=== PATIENT | female | born 1955 | race Caucasian/White ===

== ENCOUNTER 2017-05-14 12:25 | Emergency (ER) | payer MEDICAID ==
[~2017-05-14] VITALS: Ht 160 cm; Wt 60.8 kg
[~2017-05-14 12:25] MED LIST: ALLEVE; CARI250T; HYDR-1421; IBUP400T35
[2017-05-14 13:15] VITALS: BP 152/78
[2017-05-14] MEDS ORDERED: methylPREDNISolone SOD SUCC 125 MG/2 ML VL IM ONE (13:30)
== END 2017-05-14 15:21 | disposition home or self-care (01) ==
LOC: ER 12:28
DX: R21 Rash and other nonspecific skin eruption (principal); E11.9 Type 2 diabetes mellitus without complications; I10 Essential (primary) hypertension; M19.90 Unspecified osteoarthritis, unspecified site; Z79.899 Other long term (current) drug therapy
CPT/HCPCS: 96372; 99283; J2930

== ENCOUNTER 2019-12-29 12:00 | Emergency (ER) | payer MEDICARE, MEDICAID ==
[~2019-12-29] VITALS: Ht 157.5 cm; Wt 59.0 kg
[2019-12-29 12:12] VITALS: BP 127/70
[2019-12-29] MEDS ORDERED: MEPERIDINE HCL (50 MG/ML) 1 ML VIAL IM ONE (14:15)
[2019-12-29] MEDS ORDERED: PROMETHAZINE HCL 25 MG/ML 1ML IM ONE (14:15)
== END 2019-12-29 14:46 | disposition home or self-care (01) ==
LOC: EDBD 12:00 → ER 12:02
DX: M54.5 Low back pain (principal); G89.29 Other chronic pain; M19.90 Unspecified osteoarthritis, unspecified site; E11.9 Type 2 diabetes mellitus without complications; I10 Essential (primary) hypertension
CPT/HCPCS: 96372; 99283; J2175; J2550

== ENCOUNTER 2019-12-30 11:49 | Inpatient (IN) | payer MEDICARE, MEDICAID ==
[~2019-12-30] VITALS: Ht 165.1 cm; Wt 57.5 kg
[2019-12-30] MEDS ORDERED: KETOROLAC TROMETH 15 mg/ml 1ML VL IV ONE (13:15)
[2019-12-30] MEDS ORDERED: LABETALOL HCL 5 MG/ML 4ML SYRINGE IV ONE (13:15)
[2019-12-30 13:30] LABS: Basophils # (auto) 0.1 uL; Eosinophils # (auto) 0.1 uL; Lymphocytes # (auto) 1.5 uL; Monocytes # (auto) 0.5 uL; Monocytes % (auto) 5.2 % (0.0-12.0); Nucleated Red Blood Cells % 0.1 %
[2019-12-30 13:31] LABS: Basophils % (auto) 0.9 % (0.0-2.0); Eosinophils % (auto) 0.9 % (0.0-7.0); Hematocrit 52.5 % (36.0-46.0); Hemoglobin 18.1 g/dL (12.2-16.2); Lymphocytes % (auto) 15.1 % (10.0-50.0); Mean Corpuscular Hemoglobin 31.8 pg (28.0-32.0); Mean Corpuscular Hgb Conc. 34.4 g/dL (32.0-36.0); Mean Corpuscular Volume 92.6 fL (80.0-100.0); Neutrophils # (auto) 7.6 uL; Neutrophils % (auto) 77.9 % (37.0-80.0); Platelet Count (auto) 198 10^3/uL (140-450); Red Blood Cells 5.67 10^6/uL (4.0-5.20); Red Cell Distribution Width 13.1 % (11.8-14.3); White Blood Cell 9.8 10^3/uL (4.4-10.8)
[2019-12-30 13:44] LABS: Alanine Aminotransferase 27 U/L (13-56); Albumin 3.7 g/dL (3.4-5.0); Anion Gap 11 (5-15); Aspartate Aminotransferase 15 U/L (15-37); BUN/Creatinine Ratio 42.4; Blood Urea Nitrogen 25 mg/dL (7-18); Calcium 8.7 mg/dL (8.5-10.1); Carbon Dioxide 24 mmol/L (21-32); Chloride 97 mmol/L (98-107); GFR African American 131 mL/min; GFR Non-African American 108 mL/min; Glucose 327 mg/dL (74-106); Sodium 132 mmol/L (136-145)
[2019-12-30 13:49] LABS: Alkaline Phosphatase 84 U/L (45-117); Total Protein 7.2 g/dL (6.4-8.2)
[2019-12-30 14:45] LABS: Urine Bacteria NONE SEEN /hpf (None Seen); Urine Blood Negative /uL (Negative); Urine Mucus FEW (None Seen); Urine Specific Gravity 1.031 (1.001-1.035); Urine WBC 2 /hpf (0 - 5)
[2019-12-30] MEDS ORDERED: IOHEXOL 300 MG/ML 100ML BOTTLE IJ ONE (16:33)
[2019-12-30] MEDS ORDERED: cefTRIAXone 1GM/50ML D5W 50 ML IV ONE (16:45)
[2019-12-30] MEDS: MORPHINE SULF INJ 2 MG/ML SYRINGE 1ML IV PRN ×2 (17:20→22:33)
[2019-12-30] MEDS ORDERED: MAGNESIUM SULFATE 1GM/100ML 100 ML IV ONE (18:15)
[2019-12-30] MEDS ORDERED: MORPHINE SULF INJ 2 MG/ML SYRINGE 1ML IV PRN (18:15)
[2019-12-30] MEDS ORDERED: PROMETHAZINE HCL 25 MG/ML 1ML IV PRN (18:15)
[2019-12-30] MEDS ORDERED: traMADol HCL 50 MG TAB PO PRN (18:15)
[2019-12-30] MEDS ORDERED: LORazepam 0.5 MG TAB PO PRN (18:15)
[2019-12-30] MEDS ORDERED: LEVOFLOXACIN 500MG 100 ML IV ONE (18:15)
[2019-12-30] MEDS ORDERED: DEXTROSE (50%) 50ML SYRG IV PRN ×3 (18:15→22:30)
[2019-12-30] MEDS ORDERED: NITROGLYCERIN 0.4 MG SL TAB SL PRN (18:15)
[2019-12-30] MEDS ORDERED: ACETAMINOPHEN 500 MG TAB PO PRN (18:15)
[2019-12-30] MEDS: SODIUM CHLORIDE 0.9% 1,000 ML IV SCH (18:33)
[2019-12-30 19:03] LABS: Alcohol, Urine < 3.0 mg/dL (0-5); Amphetamine Screen, Urine POSITIVE (NEGATIVE); Barbiturate Scree,Urine NEGATIVE (NEGATIVE); Benzodiazephine Screen, Urine NEGATIVE (NEGATIVE); Cannabinoid Screen, Urine NEGATIVE (NEGATIVE); Cocaine Screen, Urine NEGATIVE (NEGATIVE); Opiate Scree,Urine NEGATIVE (NEGATIVE); Phencyclidine Screen, Urine NEGATIVE (NEGATIVE)
[2019-12-30] MEDS: ENOXAPARIN SOD 40 MG/0.4 ML SYRINGE SC SCH (19:04)
[2019-12-30] MEDS: FAMOTIDINE (10MG/ML) 2ML VL IV SCH (19:04)
[2019-12-30] MEDS ORDERED: hydrALAZINE HCL 20 MG/ML VL IV ONE (20:45)
[2019-12-30] MEDS ORDERED: hydrALAZINE HCL 10 MG TAB PO PRN (20:45)
[2019-12-30] MEDS ORDERED: hydrALAZINE HCL 25 MG TAB PO PRN (21:00)
[2019-12-30] MEDS ORDERED: diphenhdrAMINE HCL 25 MG CAP PO ONE (21:15)
[2019-12-30] MEDS ORDERED: ACCU-CHEK COMFORT CURVE STRIP VI SCH (22:00)
[2019-12-30] MEDS ORDERED: InsuLIN REG 1unit/0.01ml Soln (100units/ml) SC SCH (22:00)
--- NOTE | 2019-12-30 22:00 | NUR ---
PATIENT ADMITTED FROM ER Patient admitted to Telemetry unit at 2150 and arrived by wheelchair. Patient oriented to primary RN, unit, room, bed, and unit policies regarding patient care and visiting hours. Patient now on continuous telemetry monitoring, tele box # [id number] and telemetry reading on arrival to unit is sinus tachycardia. Patient weighed by bedscale and encouraged to call if they need something. Patient states current pain level is 10. Will give pain medication as scheduled. All questions and concerns addressed, patient verbalized understanding. Call light and bedside table within reach. Bed is lowest position, bed rails 2x, bed wheels locked.
--- NOTE | 2019-12-30 22:14 | NUR ---
Called and spoke to MD Erazo. Notified him that patient's daughter indicated to me that patient may decide to AMA within the next hour. Per MD Erazo, that is an individual decision and if she wishes to leave she may sign the AMA paperwork and leave. Notified MD of two blood glucose results: 360 and 484 m/dL. Orders received: discontinue current mild insulin scale and change to aggressive insulin scale ACHS. Notified of elevated BP: 191/76 and 136/55. Ordered to reassess in 10 minutes and notify MD if BP is still elevated.
[2019-12-30] MEDS: METOPROLOL TARTRATE 25 MG TAB PO SCH (22:31)
[2019-12-30] MEDS: INSULIN LANTUS (GLARGINE) 1 /0.01ml (100units/ml) SC SCH (22:32)
[2019-12-30] MEDS: CLINDAMYCIN 600MG IV 50 ML IV SCH (22:34)
[2019-12-30] MEDS ORDERED: InsuLIN REG 1unit/0.01ml Soln (100units/ml) SC ONE (23:00)
[2019-12-31] VITALS (7 sets, daily range): BP systolic 95–144; BP diastolic 46–75
[2019-12-31] MEDS ORDERED: METO25TA93 PO (00:19)
[2019-12-31] MEDS ORDERED: LISI-275 PO (00:19)
[2019-12-31] MEDS ORDERED: HYDR-4833 PO (00:19)
[2019-12-31] MEDS: SODIUM CHLORIDE 0.9% 1,000 ML IV SCH ×2 (04:30→14:14)
[2019-12-31] MEDS: CLINDAMYCIN 600MG IV 50 ML IV SCH ×3 (05:55→22:33)
[2019-12-31] MEDS: FAMOTIDINE (10MG/ML) 2ML VL IV SCH ×2 (05:55→18:15)
[2019-12-31] MEDS: MORPHINE SULF INJ 2 MG/ML SYRINGE 1ML IV PRN ×2 (06:08→13:36)
[2019-12-31] MEDS: InsuLIN REG 1unit/0.01ml Soln (100units/ml) SC SCH ×5 (07:00→22:48)
[2019-12-31] MEDS: INSULIN LANTUS (GLARGINE) 1 /0.01ml (100units/ml) SC SCH ×2 (07:00→22:54)
[2019-12-31] MEDS: ACCU-CHEK COMFORT CURVE STRIP VI SCH ×5 (07:00→22:49)
[2019-12-31] MEDS ORDERED: InsuLIN REG 1unit/0.01ml Soln (100units/ml) SC SCH ×3 (07:00→22:00)
[2019-12-31] MEDS ORDERED: ACCU-CHEK COMFORT CURVE STRIP VI SCH (07:00)
--- NOTE | 2019-12-31 08:00 | NUR ---
OPENING SHIFT NOTE ASSUMED CARE OF PATIENT AWAKE AND ALERT. NO S/S OF DISTRESS NOTED. PT HAS A COMPLAINT OF 10/10 ABDOMINAL PAIN. WILL MEDICATE PER MD ORDER AND MAR. PT UPDATED ON POC FOR THE DAY AND ALL QUESTIONS ANSWERED. BED IS IN LOWEST, LOCKED POSITION WITH SIDE RAILS UP X2 AND CALL LIGHT WITHIN REACH. WILL CONTINUE TO MONITOR Q1H AND PRN.
[2019-12-31 08:24] LABS: Basophils # (auto) 0.1 uL; Eosinophils # (auto) 0.2 uL; Eosinophils % (auto) 1.8 % (0.0-7.0); Hematocrit 49.9 % (36.0-46.0); Hemoglobin 16.7 g/dL (12.2-16.2); Lymphocytes # (auto) 2.4 uL; Mean Corpuscular Hemoglobin 30.9 pg (28.0-32.0); Mean Corpuscular Hgb Conc. 33.6 g/dL (32.0-36.0); Mean Corpuscular Volume 92.2 fL (80.0-100.0); Monocytes # (auto) 1.1 uL; Monocytes % (auto) 8.4 % (0.0-12.0); Neutrophils # (auto) 8.8 uL; Neutrophils % (auto) 69.8 % (37.0-80.0); Nucleated Red Blood Cells % 0.1 %; Platelet Count (auto) 232 10^3/uL (140-450); Red Blood Cells 5.41 10^6/uL (4.0-5.20); Red Cell Distribution Width 12.8 % (11.8-14.3); White Blood Cell 12.6 10^3/uL (4.4-10.8)
[2019-12-31 08:38] LABS: Potassium 3.4 mmol/L (3.5-5.1)
[2019-12-31 08:54] LABS: Albumin 3.4 g/dL (3.4-5.0); BUN/Creatinine Ratio 32.4; Bilirubin, Total 0.7 mg/dL (0.2-1.0); Total Protein 6.7 g/dL (6.4-8.2)
[2019-12-31] MEDS: ENOXAPARIN SOD 40 MG/0.4 ML SYRINGE SC SCH (11:07)
[2019-12-31] MEDS: LEVOFLOXACIN 500MG 100 ML IV SCH (11:07)
[2019-12-31] MEDS: METOPROLOL TARTRATE 25 MG TAB PO SCH ×2 (11:07→22:37)
[2019-12-31] MEDS ORDERED: DEXTROSE (50%) 50ML SYRG IV PRN (11:30)
[2019-12-31] MEDS ORDERED: BACL10TA PO (11:56)
[2019-12-31] MEDS ORDERED: NAP500T PO (11:57)
[2019-12-31] MEDS ORDERED: LACTULOSE 20Gm/30ML SOLN PO PRN (12:30)
--- NOTE | 2019-12-31 12:30 | NUR ---
DR JENNIFER RODRIGUEZ AT BEDSIDE TO SPEAK TO PATIENT. NEW ORDERS RECEIVED, WILL CARRY OUT. CONTINUE CARE.
--- NOTE | 2019-12-31 12:50 | NUR ---
PHYSICAL THERAPY PT AMBULATED PATIENT WITH CONTACT GUARD USING FWW. PT WAS NOT ABLE TO AMBULATE VERY FAR D/T BACK PAIN.
--- NOTE | 2019-12-31 14:20 | NUR ---
PAGED PAGED DR MURRY REGARDING LOW POTASSIUM. AWAITING CALL BACK.
[2019-12-31] MEDS ORDERED: POTASSIUM CHL 20 Meq TABLET PO ONE (16:15)
[2020-01-01] MEDS: SODIUM CHLORIDE 0.9% 1,000 ML IV SCH ×3 (00:22→13:27)
[2020-01-01] MEDS: HYDROcodone-ACET 10/325MG TAB PO PRN ×3 (00:27→20:45)
[2020-01-01 05:00] VITALS: BP 119/49
[2020-01-01] MEDS: FAMOTIDINE (10MG/ML) 2ML VL IV SCH ×2 (05:57→18:16)
[2020-01-01] MEDS: CLINDAMYCIN 600MG IV 50 ML IV SCH ×3 (05:57→21:40)
[2020-01-01 06:23] LABS: BUN/Creatinine Ratio 22.5; Calcium 8.1 mg/dL (8.5-10.1); Magnesium 1.8 mg/dL (1.6-2.6); Potassium 4.2 mmol/L (3.5-5.1)
[2020-01-01 06:25] LABS: Basophils # (auto) 0.1 uL; Basophils % (auto) 1.3 % (0.0-2.0); Eosinophils # (auto) 0.4 uL; Hematocrit 45.1 % (36.0-46.0); Hemoglobin 15.3 g/dL (12.2-16.2); Lymphocytes % (auto) 20.2 % (10.0-50.0); Mean Corpuscular Hemoglobin 31.6 pg (28.0-32.0); Mean Corpuscular Volume 93.1 fL (80.0-100.0); Monocytes # (auto) 0.8 uL; Monocytes % (auto) 8.1 % (0.0-12.0); Neutrophils # (auto) 6.7 uL; Neutrophils % (auto) 66.4 % (37.0-80.0); Platelet Count (auto) 160 10^3/uL (140-450); Red Blood Cells 4.85 10^6/uL (4.0-5.20); Red Cell Distribution Width 12.8 % (11.8-14.3); White Blood Cell 10.1 10^3/uL (4.4-10.8)
[2020-01-01] MEDS: InsuLIN REG 1unit/0.01ml Soln (100units/ml) SC SCH ×4 (07:02→21:41)
[2020-01-01] MEDS: INSULIN LANTUS (GLARGINE) 1 /0.01ml (100units/ml) SC SCH ×2 (07:02→21:42)
[2020-01-01] MEDS: ACCU-CHEK COMFORT CURVE STRIP VI SCH ×4 (07:03→21:42)
--- NOTE | 2020-01-01 08:00 | NUR ---
OPENING SHIFT NOTE ASSUMED CARE OF PATIENT. PT WAS FOUND BY FELLOW RN WANDERING IN [place] LOOKING FOR HER . RETURNED PATIENT TO HER ROOM SAFELY. PT REORIENTED AND EXPRESSED THAT SHE JUST GOT CONFUSED WHEN SHE WOKE UP. PT IS A&OX4. PT UPDATED ON POC FOR THE DAY AND ALL QUESTIONS ANSWERED. BED IS IN LOWEST, LOCKED POSITION WITH SIDE RAILS UP X2 AND CALL LIGHT WITHIN REACH. WILL CONTINUE TO MONITOR Q1H AND PRN.
[2020-01-01 09:00] VITALS: BP 128/81
[2020-01-01] MEDS: LEVOFLOXACIN 500MG 100 ML IV SCH (09:54)
[2020-01-01] MEDS: METOPROLOL TARTRATE 25 MG TAB PO SCH ×2 (09:54→21:41)
[2020-01-01] MEDS: ENOXAPARIN SOD 40 MG/0.4 ML SYRINGE SC SCH (09:55)
--- NOTE | 2020-01-01 10:30 | NUR ---
AT BEDSIDE DR MURRY AT BEDSIDE EVALUATING PATIENT AND UPDATING HER ON POC.
[2020-01-01] MEDS ORDERED: MAGNESIUM SULFATE 1GM/100ML 100 ML IV ONE (11:45)
[2020-01-01 13:00] VITALS: BP 122/64
[2020-01-01] MEDS: MORPHINE SULF INJ 2 MG/ML SYRINGE 1ML IV PRN (13:27)
--- NOTE | 2020-01-01 16:30 | NUR ---
MRI MRI CALLED ASKING IF PATIENT HAD ANY PAIN MEDICATIONS DUE. PATIENT IS NOT DUE FOR PAIN MEDICATION AT THIS TIME. MRI INFORMED ME THE PATIENT IS REFUSING THE PROCEDURE SHE CANNOT LAY FLAT D/T THE PAIN. PATIENT WAS RETURNED BACK TO HER ROOM WITHOUT INCIDENT AND PLACED BACK ON TELEMETRY MONITORING. WILL CONTINUE TO MONITOR.
[2020-01-01 17:00] VITALS: BP 109/38
--- NOTE | 2020-01-01 17:23 | NUR ---
DR PRIMO TILLMAN AT BEDSIDE TO SEE PATIENT.
--- NOTE | 2020-01-01 17:24 | NUR ---
D/C Planning Per consult for safety evaluation and rehab for drug resources. Patient daughter Kamala was at bedside when information and choice was given to patient at bedside. Patient requested for Kamala to decided. Kamala did not have a home health preference and order was faxed to [facility]. Patient refused resources for drug rehab. Faxed orders to [facility] Fax:) Ph:( [phone]). Placed followed up called to Justin with [facility]. Per Justin patient has been accepted and service to start within 24-48hrs upon d/c day.
--- NOTE | 2020-01-01 17:25 | NUR ---
NHUNG INFORMED DR TILLMAN THAT PATIENT HAS BEEN GOING IN AND OUT OF A BIGEMINY RHYTHM. AWARE, NO NEW ORDERS.
[2020-01-01 22:00] VITALS: BP 120/65
[2020-01-02] MEDS: SODIUM CHLORIDE 0.9% 1,000 ML IV SCH ×2 (04:25→21:05)
[2020-01-02 05:49] VITALS: BP 116/59
[2020-01-02] MEDS: InsuLIN REG 1unit/0.01ml Soln (100units/ml) SC SCH ×4 (06:41→22:10)
[2020-01-02] MEDS: INSULIN LANTUS (GLARGINE) 1 /0.01ml (100units/ml) SC SCH ×2 (06:41→22:10)
[2020-01-02] MEDS: ACCU-CHEK COMFORT CURVE STRIP VI SCH ×4 (06:41→22:09)
[2020-01-02] MEDS: FAMOTIDINE (10MG/ML) 2ML VL IV SCH ×2 (06:42→18:18)
[2020-01-02] MEDS: CLINDAMYCIN 600MG IV 50 ML IV SCH ×3 (06:42→21:55)
[2020-01-02 07:04] LABS: Cholesterol 163 mg/dL (< 200); HDL Cholesterol 38 mg/dL (40-59); LDL Cholesterol 102 mg/dL (< 100); Triglycerides 198 mg/dL (< 150)
[2020-01-02] MEDS: HYDROcodone-ACET 10/325MG TAB PO PRN ×2 (07:05→17:19)
--- NOTE | 2020-01-02 08:00 | NUR ---
OPENING SHIFT NOTE ASSUMED CARE OF PATIENT AWAKE AND ALERT. PT UPDATED ON POC FOR THE DAY AND ALL QUESTIONS ANSWERED. BED IS IN LOWEST, LOCKED POSITION WITH SIDE RAILS UP X2 AND CALL LIGHT WITHIN REACH. WILL CONTINUE TO MONITOR Q1H AND PRN.
[2020-01-02 09:00] VITALS: BP 107/58
[2020-01-02] MEDS: METOPROLOL TARTRATE 25 MG TAB PO SCH ×2 (09:57→21:56)
[2020-01-02] MEDS: LEVOFLOXACIN 500MG 100 ML IV SCH (09:57)
[2020-01-02] MEDS: ENOXAPARIN SOD 40 MG/0.4 ML SYRINGE SC SCH (09:57)
[2020-01-02] MEDS ORDERED: HYDROmorphone HCL 2 MG/ML VL IV ONE ×2 (10:45→14:45)
[2020-01-02 13:00] VITALS: BP 117/80
--- NOTE | 2020-01-02 13:20 | NUR ---
MRI PATIENT AGAIN UNABLE TO COMPLETE MRI OF SPINE DESPITE ADMINISTRATION OF IV DILAUDID FOR PAIN. DR MURRY AWARE. NEW ORDERS RECEIVED.
--- NOTE | 2020-01-02 14:00 | NUR ---
SPOKE WITH DR MURRY REGARDING PATIENT'S INABILITY TO LAY FOR MRI. 250ML NS BOLUS ORDERED FOR DECREASED BP. ORDERS TO GIVE 0.5MG DILAUDID IV AND 1MG ATIVAN IV IF BP IS STABLE AND RETRY MRI. WILL FOLLOW UP.
--- NOTE | 2020-01-02 14:10 | NUR ---
PATIENT REFUSED BOTH ATTEMPTS FROM PHYSICAL THERAPY TODAY. TAAWNA RAGLAND WAS NOTIFIED. Addendum: 01/02/20 at 1411 by DEENA OLEA PTT Amended: Links added.
[2020-01-02] MEDS ORDERED: LORazepam 2MG/ML-1ML VIAL IV ONE (14:45)
--- NOTE | 2020-01-02 14:45 | NUR ---
BP REASSESSMENT PATIENT'S BLOOD PRESSURE AFTER RECEIVING NS BOLUS IS 93/51 WITH A HEART RATE OF 71. INFORMED PATIENT AND DR SHAIKH Allred WILL NOT BE GIVING IV PAIN AND ANXIETY MEDICATIONS AND THE MRI WILL HAVE TO BE REATTEMPTED TOMORROW. WILL CONTINUE TO MONITOR.
--- NOTE | 2020-01-02 15:03 | NUR ---
NUTRITION ASSESSMENT NOTES Please refer to link notes of nutrition screen form filed under the intervention section of the plan of care for further details. Est. Needs: 1450 kcal to 1700 kcal (25-30 kcal/kgBW), 57gms to 68 gms pro (1.0-1.2 gms/kgBW). Will continue to monitor pertinent labs and reassess nutrient needs prn Thank you. Addendum: 01/02/20 at [address] Amended: Links added.
[2020-01-02 17:00] VITALS: BP 93/51
--- NOTE | 2020-01-02 19:45 | NUR ---
OPENING SHIFT NOTE Assumed care of patient who is A&O x4. Currently on RA with no s/s of distress; denies SOB. reports 6/10 pain in left lower abdomen and back. Patient informed that pain medication is not due at this time. Patient verbalizes understanding. POC discussed and all questions answered. PIV in left hand is intact and patent. IVF infusing as ordered. Bed is in low locked position with side rails up x2. Call light is within reach and patient encouraged to call for assistance when needed. Will continue to monitor for changes PRN.
[2020-01-02 20:00] VITALS: BP 113/81
[2020-01-02 22:00] VITALS: BP 113/66
--- NOTE | 2020-01-02 22:00 | NUR ---
Patient requesting sleep aid. Will notify hospitalist.
--- NOTE | 2020-01-02 22:15 | NUR ---
Received call from Hospitalist, Chris Aguirre NP. New orders received. Will follow through.
[2020-01-02] MEDS ORDERED: TEMAZEPAM 15 MG CAP PO ONE (22:45)
--- NOTE | 2020-01-03 02:40 | NUR ---
FALL Patient found sitting on floor at bedside. States she fell attempting to get onto the bedside commode. Patient assessed; no injuries noted and patient denies any pain. BG 185. V/S as follows: HR: 91, BP: 177/87, Spo2: 97% Patient assisted back into bed. Bed alarm on and fall bracelet placed on patient. Patient instructed to call for assistance before getting up.
--- NOTE | 2020-01-03 03:27 | NUR ---
Blood pressure elevated at 177/87. No PRN medications for BP available at this time. Hospitalist notified
--- NOTE | 2020-01-03 03:32 | NUR ---
Received call from Hospitalist Chris Aguirre. New orders received. Will follow through.
[2020-01-03] MEDS ORDERED: cloNIDine HCL 0.1 MG TAB PO ONE (03:45)
--- NOTE | 2020-01-03 04:00 | NUR ---
Patient continues to bed up to bedside commode without using call light. States, "why can't I pee?" Patient assisted back into bed and bladder scan performed. 353ml of urine present in bladder. Will continue to monitor.
[2020-01-03 05:00] VITALS: BP 189/85
--- NOTE | 2020-01-03 05:00 | NUR ---
Patient voided x2 without difficulty.
--- NOTE | 2020-01-03 05:30 | NUR ---
BP REASSESSED BP is 165/81 after the administration of Clonidine 0.1mg. Will continue to monitor.
[2020-01-03] MEDS: FAMOTIDINE (10MG/ML) 2ML VL IV SCH ×2 (06:31→17:58)
[2020-01-03] MEDS: CLINDAMYCIN 600MG IV 50 ML IV SCH ×4 (06:31→22:27)
[2020-01-03] MEDS: ACCU-CHEK COMFORT CURVE STRIP VI SCH ×4 (06:44→22:28)
[2020-01-03] MEDS: INSULIN LANTUS (GLARGINE) 1 /0.01ml (100units/ml) SC SCH ×2 (06:44→22:00)
[2020-01-03] MEDS: InsuLIN REG 1unit/0.01ml Soln (100units/ml) SC SCH ×4 (06:44→22:00)
--- NOTE | 2020-01-03 07:15 | NUR ---
OPENING NOTE Assumed care of patient AOx4, no S/S of SOB/distress noted. Patient states pain 10/10, will medicate per MD orders. Safety precautions in place. Bed set to lowest position/locked, bed alarm on, bedside rails up x2, call light within reach. Instructed patient to call for assistance. Updated patient on POC. Patient verbalized understanding. Will continue to monitor Q1hr and PRN.
[2020-01-03] MEDS: METOPROLOL TARTRATE 25 MG TAB PO SCH ×2 (08:24→22:28)
[2020-01-03] MEDS: ENOXAPARIN SOD 40 MG/0.4 ML SYRINGE SC SCH (08:25)
[2020-01-03] MEDS: LEVOFLOXACIN 500MG 100 ML IV SCH (08:25)
[2020-01-03] MEDS: HYDROcodone-ACET 10/325MG TAB PO PRN (08:25)
[2020-01-03] MEDS ORDERED: HYDROmorphone HCL 2 MG/ML VL IV ONE (08:45)
[2020-01-03] MEDS ORDERED: LORazepam 2MG/ML-1ML VIAL IV ONE ×2 (08:45→14:15)
[2020-01-03 09:00] VITALS: BP 126/81
--- NOTE | 2020-01-03 09:10 | NUR ---
MRI Unable to complete MRI. Patient unable to lay flat.
[2020-01-03 12:30] VITALS: BP 92/55
[2020-01-03] MEDS ORDERED: HYDROcodone-ACET 5/325MG TAB PO PRN (13:00)
[2020-01-03] MEDS: SODIUM CHLORIDE 0.9% 1,000 ML IV SCH (13:45)
--- NOTE | 2020-01-03 13:47 | NUR ---
IV Patient taken down to CT. Patient was brought back to unit without IV.
--- NOTE | 2020-01-03 14:02 | NUR ---
CT Spoke with CT per Dr. Davis CT needs to be done. They will attempt one more time.
--- NOTE | 2020-01-03 15:47 | NUR ---
DAUGHTER ONEAL SPOKE TO DAUGHTER ONEAL AT NURSES STATION. DAUGHTER REQUESTING UPDATE ON MOM. DAUGHTER WAS INFORMED THAT PATIENT COULD NOT LIE STILL FOR MRI. MRI HAS BEEN CANCELLED. DAUGHTER WAS INFORMED CT SCAN WAS ORDER AND UNABLE TO DO, PATIENT WAS UNABLE TO STAY STILL. DAUGHTER WAS REQUESTING MRI TO BE DONE, DAUGHTER WAS INFORMED HOSPICE VOLUNTEER ATTEMPTED 3 TIMES.
--- NOTE | 2020-01-03 15:54 | NUR ---
PATIENT REFUSED PT. TAWANA MEDELLIN WAS NOTIFIED. Addendum: 01/03/20 at 1554 by DEENA OLEA PTT Amended: Links added.
--- NOTE | 2020-01-03 15:55 | NUR ---
CT PATIENT TAKEN TO RADIOLOGY VIA WHEELCHAIR FOR SECOND ATTEMPT AT CT, ACCOMPANIED BY DAUGHTER.
[2020-01-03 17:00] VITALS: BP 99/49
--- NOTE | 2020-01-03 17:30 | NUR ---
IV insertion IV access obtained, via clean sterile technique by inserting 22 gauge catheter at right hand after 2 attempts. IV secured properly. No trauma to site. Patient tolerated well.
--- NOTE | 2020-01-03 19:40 | NUR ---
OPENING SHIFT NOTE Assumed care of patient, who is resting in bed with eyes closed. No distress noted; arouses to name. Patient is currently on RA with no distress or SOB. Denies pain at this time. PIV in right hand is CDI and patent. Flushed with 10ml NS. IVF infusing as ordered. POC discussed with patient. Bed is in low locked position with side rails up x2. Call light is within reach and bed alarm on for patient safety. Patient instructed to call for assistance when needed. Will continue to monitor for changes PRN.
[2020-01-03 20:00] VITALS: BP 121/55
[2020-01-03 22:00] VITALS: BP 121/55
--- NOTE | 2020-01-03 22:20 | NUR ---
Patient provided sugar free snack per request.
--- NOTE | 2020-01-04 01:41 | NUR ---
Patient assisted onto bedside commode for void x1 of clear yellow urine. Patient tolerated well. provided snack as requested.
--- NOTE | 2020-01-04 04:15 | NUR ---
Patient assisted onto bedside commode. Tolerated well. with minimal assist.
[2020-01-04] MEDS: CLINDAMYCIN 600MG IV 50 ML IV SCH ×2 (05:51→15:23)
[2020-01-04] MEDS: FAMOTIDINE (10MG/ML) 2ML VL IV SCH ×2 (05:51→18:15)
[2020-01-04 06:07] VITALS: BP 119/70
[2020-01-04 06:12] LABS: Calcium 8.6 mg/dL (8.5-10.1); Magnesium 2.2 mg/dL (1.6-2.6); Potassium 3.9 mmol/L (3.5-5.1)
[2020-01-04] MEDS: ACCU-CHEK COMFORT CURVE STRIP VI SCH ×3 (06:25→17:00)
[2020-01-04] MEDS: INSULIN LANTUS (GLARGINE) 1 /0.01ml (100units/ml) SC SCH (06:25)
[2020-01-04] MEDS: InsuLIN REG 1unit/0.01ml Soln (100units/ml) SC SCH ×3 (06:26→17:00)
[2020-01-04] MEDS: SODIUM CHLORIDE 0.9% 1,000 ML IV SCH (06:38)
--- NOTE | 2020-01-04 07:20 | NUR ---
OPENING SHIFT NOTE Assumed care of patient comfortably resting in bed. No S/S of distress/SOB/pain noted/reported at this time. Bed in low position, locked, and call light within reach. Bed rails x2 up. Patient updated on POC for the day and to call for assistance as needed, patient verbalized understanding.
--- NOTE | 2020-01-04 08:30 | NUR ---
SPOKE WITH DAUGHTER Patients david Wray updated on patients POC for the day.
[2020-01-04 09:00] VITALS: BP 107/50
[2020-01-04] MEDS: LEVOFLOXACIN 500MG 100 ML IV SCH (10:16)
[2020-01-04] MEDS: METOPROLOL TARTRATE 25 MG TAB PO SCH (10:18)
[2020-01-04] MEDS: ENOXAPARIN SOD 40 MG/0.4 ML SYRINGE SC SCH (10:18)
--- NOTE | 2020-01-04 11:46 | NUR ---
OPENING SHIFT NOTE Assumed care of patient comfortably resting in bed. No S/S of distress/SOB/pain noted/reported at this time. Patient on 2L O2 via NC, saturation 94%. Bed in low position, locked, and call light within reach. Bed rails x2 up. Patient updated on POC for the day and to call for assistance as needed, patient verbalized understanding. Addendum: 01/04/20 at 1148 by SULEMAN MANLEY RN RN wrong patient
[2020-01-04 13:00] VITALS: BP 144/71
--- NOTE | 2020-01-04 13:07 | NUR ---
Discharge planning per SS consult, patient has orders for SNF placement. Referral was sent to [facility] [phone], [facility] [phone], and [facility] [phone]. Acceptance is pending. Referral also was sent to [facility] [phone] for auth.
--- NOTE | 2020-01-04 14:00 | NUR ---
PATIENT OFF UNIT Patient transported to MRI via wheelchair accompanied by staff and family member.
--- NOTE | 2020-01-04 14:41 | NUR ---
assessment Patient is a 64 year old female who is alert and oriented. Patients cognitive abilities are intact. Prior to admission patient lived home alone and functioned independently. Patient informed me she is able to care for her own ADLs. Per patient she will return home to her prior living arrangements post discharge and family will transport her home. Patient informed me she has no DME. I informed patient she has a ss consult for SNF. Patient is refusing SNF and wants to return home on discharge. Patient will need home health for PT and a fww. Patient informed me her daughter will return home with her or she will go home with her daughter. I informed patient she has a right to speak to a social media community manager regarding all care. I informed patient she has a right to participate in any and all discharge planning. Patient does not have a POA and advanced directive. I have offered patient information on POA and advanced directives. I informed the patient the advantages and benefits of having an Advanced Directive. Patient verbalized understanding and agreed to discharge plan. Addendum: 01/04/20 at 1444 by Merna AMEZCUA Amended: Links added.
[2020-01-04] MEDS ORDERED: METF-372 PO (16:26)
[2020-01-04] MEDS ORDERED: MET25T PO (16:26)
[2020-01-04 17:00] VITALS: BP 142/92
--- NOTE | 2020-01-04 17:17 | NUR ---
Patient has orders for home health as she and daughter declined SNF placement. Patient was accepted to [facility] [phone]. Placed a follow up call, spoke with rep Anderson and was advised that patient is still okay for services. Advised patient was discharging today, he advised they will reach out to patient in the am. Patient also has and order for a walker. Referral was sent to [facility], placed a follow up call, spoke with rep Grant and was advised they could deliver the walker to the patient's home in [place] tomorrow. Sam confirmed with daughter that that would be okay to deliver the walker to the home tomorrow.
[2020-01-04 17:20] VITALS: BP 144/71
--- NOTE | 2020-01-04 18:36 | NUR ---
TELE BOX RETURNED Tele box #[id number] returned via bullet system. civil cadd technician Tamar berger.
--- NOTE | 2020-01-04 19:05 | NUR ---
Patient taken to vehicle via wheelchair with all personal belongings, accompanied by staff and family member. No distress noted at time of departure
--- NOTE | 2020-01-04 19:21 | NUR ---
DISCHARGE Discharge instructions given as ordered. Encourage to follow up with PMD as instructed. All questions and concerns addressed with patient and daughter. Patient and daughter verbalized understanding. IV removed with catheter intact, pressure dressing applied. Telemetry unit returned to ICU. .
== END 2020-01-04 19:05 | disposition home health service (06) | DRG 347 ==
LOC: ER 11:49 → EDBD 11:49 → TELE 11:50 → TELE-CENTR 21:50
PROVIDERS: ADMIT Internal Medicine; ATTEND Internal Medicine
DX: M46.44 Discitis, unspecified, thoracic region (principal); E11.9 Type 2 diabetes mellitus without complications; E86.0 Dehydration; K59.00 Constipation, unspecified; F15.10 Other stimulant abuse, uncomplicated; G89.29 Other chronic pain; R00.8 Other abnormalities of heart beat; M19.90 Unspecified osteoarthritis, unspecified site; I10 Essential (primary) hypertension; Z71.51 Drug abuse counseling and surveillance of drug abuser; Z91.19 Patient's noncompliance with other medical treatment and regimen; Z80.3 Family history of malignant neoplasm of breast; Z82.49 Family history of ischemic heart disease and other diseases of the circulatory system; Z90.710 Acquired absence of both cervix and uterus; Z83.3 Family history of diabetes mellitus
CPT/HCPCS: 36415; 71045; 72128; 72131; 72146; 74177; 76705; 80048; 80053; 80061; 80307; 81001; 82550; 82962; 83036; 83605; 83690; 83735; 83880; 84443; 84484; 85025; 85652; 86141; 87040; 93005; 93306; 96365; 96367; 96372; 96375; 97116; 97163; 97530; G0378; J0696; J1815; J1956; J3490

== ENCOUNTER 2020-03-31 19:40 | Inpatient (IN) | payer MEDICARE, MEDICAID ==
[~2020-03-31] VITALS: Ht 160 cm; Wt 53.1 kg
[~2020-03-31 19:40] MED LIST changes: +BACL10TA PO; +HYDR-4833 PO; +LISI-275 PO; +METF-372 PO; +METO25TA93 PO; +NAP500T PO
[2020-03-31] MEDS ORDERED: SODIUM CHLORIDE 0.9% 1,000 ML IV ONE (20:10)
[2020-03-31] MEDS ORDERED: ONDANSETRON HCL 4 MG/2 ML VIAL IV ONE (20:15)
[2020-03-31 20:20] LABS: Basophils # (auto) 0 10 ^3/uL (0-0.2); Basophils % (auto) 0.2 % (0.0-2.0); Eosinophils # (auto) 0 10 ^3/uL (0-0.8); Eosinophils % (auto) 0.1 % (0.0-7.0); Hematocrit 40.9 % (36.0-46.0); Hemoglobin 13.4 g/dL (12.2-16.2); Lymphocytes % (auto) 7.4 % (10.0-50.0); Mean Corpuscular Hemoglobin 31.2 pg (28.0-32.0); Mean Corpuscular Hgb Conc. 32.8 g/dL (32.0-36.0); Monocytes % (auto) 7.5 % (0.0-12.0); Neutrophils # (auto) 11.7 10 ^3/uL (1.6-8.6); Neutrophils % (auto) 84.8 % (37.0-80.0); Platelet Count (auto) 217 10^3/uL (140-450); Red Cell Distribution Width 13.6 % (11.8-14.3); White Blood Cell 13.8 10^3/uL (4.4-10.8)
[2020-03-31 20:38] LABS: Albumin 3.3 g/dL (3.4-5.0); Calcium 6.3 mg/dL (8.5-10.1)
[2020-03-31 20:44] LABS: Bilirubin, Total 0.4 mg/dL (0.2-1.0); Total Protein 6.5 g/dL (6.4-8.2)
[2020-03-31 20:46] LABS: BUN/Creatinine Ratio 19.7; Potassium 6.6 mmol/L (3.5-5.1)
[2020-03-31 20:57] LABS: Amylase 415 U/L (25-115); Lipase 36 U/L (73-393)
[2020-03-31 21:02] LABS: INR 1.19 (0.9-1.15); Partial Thromboplastin Time 29.1 sec (23.64-32.05)
[2020-03-31] MEDS ORDERED: InsuLIN REG 1unit/0.01ml Soln (100units/ml) IV ONE ×2 (21:15→23:45)
[2020-03-31] MEDS ORDERED: DEXTROSE (50%) 50ML SYRG IV ONE ×2 (21:15→23:45)
[2020-03-31] MEDS ORDERED: SODIUM BICARBONATE 8.4% INJ 50ML SYRINGE IV ONE ×2 (21:15→23:45)
[2020-03-31] MEDS ORDERED: CALCIUM GLUC 4.65meq/50ml D5AE 50 ML IV ONE ×2 (21:15→23:45)
[2020-03-31 21:28] LABS: Lactic Acid w/Reflex 10.1 mmol/L (0.4-2.0)
[2020-03-31] MEDS ORDERED: SODIUM CHLORIDE 0.9% 1,000 ML IV SCH (21:45)
[2020-03-31] MEDS ORDERED: ONDANSETRON HCL 4 MG/2 ML VIAL IV PRN (21:45)
[2020-03-31] MEDS: SODIUM ZIRCONIUM CYCL 10 GM PAK PO SCH (21:45)
[2020-03-31] MEDS ORDERED: MORPHINE SULFATE 4 MG/ML SYR/VIAL IV PRN (21:45)
[2020-03-31] MEDS ORDERED: NITROGLYCERIN 0.4 MG SL TAB SL PRN ×2 (21:45)
[2020-03-31] MEDS ORDERED: LORazepam 0.5 MG TAB PO PRN (21:45)
[2020-03-31] MEDS ORDERED: MORPHINE SULF INJ 2 MG/ML SYRINGE 1ML IV PRN (21:45)
[2020-03-31] MEDS ORDERED: ACETAMINOPHEN 325 MG TAB PO PRN (21:45)
[2020-03-31] MEDS ORDERED: DEXTROSE (50%) 50ML SYRG IV PRN (21:45)
[2020-03-31] MEDS: ATORVASTATIN 20 MG TAB PO SCH (22:25)
[2020-03-31] MEDS: CARVEDILOL 3.125 MG TAB PO SCH (22:25)
[2020-03-31 22:46] LABS: Urine WBC None Seen /hpf (0 - 5)
[2020-03-31 22:58] LABS: Urine Bacteria NONE SEEN /hpf (None Seen); Urine Blood 1+ /uL (Negative); Urine Hyaline Cast FEW /lpf (0 - 2); Urine Mucus FEW (None Seen); Urine Specific Gravity 1.013 (1.001-1.035)
[2020-03-31 23:12] LABS: Alcohol, Urine < 3.0 mg/dL (0-5); Amphetamine Screen, Urine POSITIVE (NEGATIVE); Barbiturate Scree,Urine NEGATIVE (NEGATIVE); Benzodiazephine Screen, Urine NEGATIVE (NEGATIVE); Cannabinoid Screen, Urine NEGATIVE (NEGATIVE); Cocaine Screen, Urine NEGATIVE (NEGATIVE); Opiate Scree,Urine NEGATIVE (NEGATIVE); Phencyclidine Screen, Urine NEGATIVE (NEGATIVE)
[2020-03-31] MEDS ORDERED: SODIUM ZIRCONIUM CYCL 10 GM PAK PO ONE (23:45)
[2020-04-01] VITALS: BP 126/69
[2020-04-01] MEDS: InsuLIN REG 1unit/0.01ml Soln (100units/ml) SC SCH ×6 (01:42→20:20)
[2020-04-01] MEDS: ACCU-CHEK COMFORT CURVE STRIP VI SCH ×6 (04:08→20:19)
[2020-04-01 05:54] VITALS: BP 106/63
[2020-04-01] MEDS: SODIUM ZIRCONIUM CYCL 10 GM PAK PO SCH ×3 (06:00→22:28)
[2020-04-01 07:11] LABS: Basophils # (auto) 0 10 ^3/uL (0-0.2); Basophils % (auto) 0.3 % (0.0-2.0); Eosinophils # (auto) 0 10 ^3/uL (0-0.8); Hematocrit 39.7 % (36.0-46.0); Hemoglobin 13.4 g/dL (12.2-16.2); Lymphocytes # (auto) 1.6 10 ^3/uL (0.4-5.4); Lymphocytes % (auto) 14.6 % (10.0-50.0); Mean Corpuscular Hemoglobin 31.6 pg (28.0-32.0); Mean Corpuscular Hgb Conc. 33.8 g/dL (32.0-36.0); Mean Corpuscular Volume 93.6 fL (80.0-100.0); Monocytes # (auto) 0.9 10 ^3/uL (0-1.3); Monocytes % (auto) 7.7 % (0.0-12.0); Neutrophils # (auto) 8.6 10 ^3/uL (1.6-8.6); Neutrophils % (auto) 77.4 % (37.0-80.0); Nucleated Red Blood Cells % 0.1 %; Platelet Count (auto) 195 10^3/uL (140-450); Red Blood Cells 4.24 10^6/uL (4.0-5.20); Red Cell Distribution Width 13.6 % (11.8-14.3); White Blood Cell 11.2 10^3/uL (4.4-10.8)
[2020-04-01 07:26] LABS: Calcium 6.9 mg/dL (8.5-10.1); Potassium 5.1 mmol/L (3.5-5.1)
[2020-04-01 07:28] LABS: BUN/Creatinine Ratio 20.7
[2020-04-01 09:00] VITALS: BP 130/58
[2020-04-01] MEDS: cefTRIAXone 1GM/50ML D5W 50 ML IV SCH (10:00)
[2020-04-01] MEDS: CLOPIDOGREL BISULFATE 75 MG TAB PO SCH (10:00)
[2020-04-01] MEDS: ASPirin 81 mg TAB PO SCH (10:00)
[2020-04-01] MEDS: DOCUSATE SOD 100 MG CAP PO SCH (10:00)
[2020-04-01] MEDS ORDERED: LOSARTAN POTASSIUM 25 MG TAB PO SCH (10:00)
[2020-04-01 10:36] LABS: Protein, Urine 128.5 mg/dL (0.0-11.9)
[2020-04-01 13:00] VITALS: BP 108/42
[2020-04-01 13:44] LABS: Hepatitis B Surface Antibody Negative
[2020-04-01 14:23] LABS: Hepatitis A Total Antibody Negative
[2020-04-01 14:51] LABS: Hepatitis B Core Total AB Negative; Hepatitis B Surface Antigen Negative (Negative); Hepatitis C Antibody Negative (Negative)
[2020-04-01 17:00] VITALS: BP 140/68
[2020-04-01] MEDS: CARVEDILOL 3.125 MG TAB PO SCH ×2 (18:28→22:00)
[2020-04-01] MEDS: SODIUM BICARBONATE 50ML VIAL 50 ML in SOD CHL 0.45% 1,000 ML IV SCH (18:29)
[2020-04-01 22:00] VITALS: BP_SYST 101; BP_SYST 88; BP_DIAS 43; BP_DIAS 66
[2020-04-01] MEDS: ATORVASTATIN 20 MG TAB PO SCH (22:28)
[2020-04-02 03:21] LABS: Albumin 2.7 g/dL (3.4-5.0); Potassium 4.2 mmol/L (3.5-5.1)
[2020-04-02 03:27] LABS: BUN/Creatinine Ratio 20.8; Bilirubin, Total 0.6 mg/dL (0.2-1.0); Total Protein 5.4 g/dL (6.4-8.2)
[2020-04-02] MEDS: ACCU-CHEK COMFORT CURVE STRIP VI SCH ×6 (04:00→21:30)
[2020-04-02] MEDS: InsuLIN REG 1unit/0.01ml Soln (100units/ml) SC SCH ×6 (04:00→21:30)
[2020-04-02 05:00] VITALS: BP 105/58
[2020-04-02] MEDS: SODIUM BICARBONATE 50ML VIAL 50 ML in SOD CHL 0.45% 1,000 ML IV SCH (06:34)
[2020-04-02] MEDS: SODIUM ZIRCONIUM CYCL 10 GM PAK PO SCH (06:35)
[2020-04-02 06:57] LABS: Basophils # (auto) 0 10 ^3/uL (0-0.2); Basophils % (auto) 0.2 % (0.0-2.0); Eosinophils # (auto) 0 10 ^3/uL (0-0.8); Eosinophils % (auto) 0.1 % (0.0-7.0); Hemoglobin 12.9 g/dL (12.2-16.2); Lymphocytes # (auto) 0.9 10 ^3/uL (0.4-5.4); Lymphocytes % (auto) 9.9 % (10.0-50.0); Mean Corpuscular Hgb Conc. 34.8 g/dL (32.0-36.0); Mean Corpuscular Volume 91.9 fL (80.0-100.0); Monocytes # (auto) 0.9 10 ^3/uL (0-1.3); Monocytes % (auto) 10.5 % (0.0-12.0); Neutrophils % (auto) 79.3 % (37.0-80.0); Platelet Count (auto) 143 10^3/uL (140-450); Red Blood Cells 4.03 10^6/uL (4.0-5.20); Red Cell Distribution Width 13.2 % (11.8-14.3); White Blood Cell 8.9 10^3/uL (4.4-10.8)
[2020-04-02 07:35] LABS: Phosphorus 10.5 mg/dL (2.5-4.90)
[2020-04-02 09:00] VITALS: BP 92/51
[2020-04-02] MEDS: CLOPIDOGREL BISULFATE 75 MG TAB PO SCH (10:00)
[2020-04-02] MEDS: DOCUSATE SOD 100 MG CAP PO SCH (10:00)
[2020-04-02] MEDS: CARVEDILOL 3.125 MG TAB PO SCH ×2 (10:00→21:50)
[2020-04-02] MEDS: ASPirin 81 mg TAB PO SCH (10:00)
[2020-04-02] MEDS: cefTRIAXone 1GM/50ML D5W 50 ML IV SCH (10:36)
[2020-04-02] MEDS: CALCIUM ACETATE 667 MG CAP PO SCH ×2 (11:48→18:17)
[2020-04-02 13:33] VITALS: BP 105/43
[2020-04-02 16:36] VITALS: BP 101/49
[2020-04-02] MEDS: ATORVASTATIN 20 MG TAB PO SCH (22:04)
[2020-04-02 22:08] VITALS: BP 93/37
[2020-04-03] MEDS: ACCU-CHEK COMFORT CURVE STRIP VI SCH ×6 (00:05→20:00)
[2020-04-03] MEDS: InsuLIN REG 1unit/0.01ml Soln (100units/ml) SC SCH ×6 (00:12→20:36)
[2020-04-03] MEDS: SODIUM BICARBONATE 50ML VIAL 50 ML in SOD CHL 0.45% 1,000 ML IV SCH (04:31)
[2020-04-03 05:00] VITALS: BP 106/39
[2020-04-03 07:28] LABS: Calcium 6.7 mg/dL (8.5-10.1)
[2020-04-03 07:33] LABS: Albumin 2.5 g/dL (3.4-5.0); Bilirubin, Total 0.8 mg/dL (0.2-1.0); Phosphorus 6.5 mg/dL (2.5-4.90); Total Protein 5.4 g/dL (6.4-8.2); Uric Acid 11.4 mg/dL (2.6-6.0)
[2020-04-03 07:40] LABS: Potassium 2.8 mmol/L (3.5-5.1)
[2020-04-03 08:00] VITALS: BP 112/62
[2020-04-03] MEDS: CALCIUM ACETATE 667 MG CAP PO SCH ×3 (08:22→17:47)
[2020-04-03] MEDS ORDERED: POTASSIUM CHL 20MEQ/100ML 100 ML IV ONE (08:30)
[2020-04-03] MEDS ORDERED: POTASSIUM CHLORIDE 60 MEQ, LIDOCAINE 1% (LOCAL ANESTH.) 6 ML in SODIUM CHL 0.9% 500 ML IV ONE (09:00)
[2020-04-03] MEDS: CARVEDILOL 3.125 MG TAB PO SCH ×2 (10:00→22:00)
[2020-04-03] MEDS: DOCUSATE SOD 100 MG CAP PO SCH (10:20)
[2020-04-03] MEDS: CLOPIDOGREL BISULFATE 75 MG TAB PO SCH (10:22)
[2020-04-03] MEDS: ASPirin 81 mg TAB PO SCH (10:22)
[2020-04-03] MEDS: SODIUM CHLORIDE 0.9% 1,000 ML IV SCH ×2 (10:23→17:48)
[2020-04-03] MEDS: cefTRIAXone 1GM/50ML D5W 50 ML IV SCH (10:24)
[2020-04-03 12:00] VITALS: BP 114/64
[2020-04-03] MEDS ORDERED: ERGOCALCIFEROL 50,000 UNIT(1.25MG) CAP PO SCH (16:30)
[2020-04-03 17:00] VITALS: BP 123/56
[2020-04-03 17:10] LABS: Lactic Acid w/Reflex 3.2 mmol/L (0.4-2.0)
[2020-04-03] MEDS: INSULIN 70/30 1unit/0.01ml Susp (100units/ml) SC SCH (17:47)
[2020-04-03] MEDS ORDERED: MAGNESIUM OXIDE 400 MG TAB PO ONE (18:00)
[2020-04-03] MEDS: HYOSCYAMINE SULF 0.125 MG ODT TAB PO PRN (20:28)
[2020-04-03 22:00] VITALS: BP 129/52
[2020-04-03] MEDS: ATORVASTATIN 20 MG TAB PO SCH (22:00)
[2020-04-04] MEDS: ACCU-CHEK COMFORT CURVE STRIP VI SCH ×6 (04:00→20:00)
[2020-04-04] MEDS: InsuLIN REG 1unit/0.01ml Soln (100units/ml) SC SCH ×6 (04:10→20:00)
[2020-04-04] MEDS: SODIUM CHLORIDE 0.9% 1,000 ML IV SCH (05:00)
[2020-04-04 05:30] VITALS: BP 134/67
[2020-04-04 07:33] LABS: Albumin 2.4 g/dL (3.4-5.0); Calcium 7.6 mg/dL (8.5-10.1); Potassium 3.2 mmol/L (3.5-5.1)
[2020-04-04 07:34] LABS: Lactic Acid w/Reflex 4.1 mmol/L (0.4-2.0)
[2020-04-04 07:38] LABS: BUN/Creatinine Ratio 26.5; Bilirubin, Total 0.5 mg/dL (0.2-1.0); Total Protein 5.4 g/dL (6.4-8.2)
[2020-04-04 08:00] VITALS: BP 143/66
[2020-04-04] MEDS: CALCIUM ACETATE 667 MG CAP PO SCH ×3 (08:05→18:05)
[2020-04-04] MEDS: INSULIN 70/30 1unit/0.01ml Susp (100units/ml) SC SCH ×2 (08:07→17:50)
[2020-04-04] MEDS: CARVEDILOL 3.125 MG TAB PO SCH ×2 (09:33→21:46)
[2020-04-04] MEDS: ASPirin 81 mg TAB PO SCH (09:34)
[2020-04-04] MEDS: CLOPIDOGREL BISULFATE 75 MG TAB PO SCH (09:34)
[2020-04-04] MEDS: DOCUSATE SOD 100 MG CAP PO SCH (09:39)
[2020-04-04] MEDS ORDERED: POTASSIUM CHL 20 Meq TABLET PO ONE (10:30)
[2020-04-04] MEDS ORDERED: SODIUM CHLORIDE 0.9% 1,000 ML IV SCH (11:00)
[2020-04-04] MEDS ORDERED: SODIUM CHLORIDE 0.9% IV SCH (11:15)
[2020-04-04] MEDS ORDERED: POTASSIUM PHOSPHATE IV SCH (11:15)
[2020-04-04 12:00] VITALS: BP 104/55
[2020-04-04] MEDS: POTASSIUM CHLORIDE 10 MEQ in SODIUM CHLORIDE 0.9% 1,000 ML IV SCH ×2 (14:10→23:03)
[2020-04-04 14:13] LABS: Lactic Acid w/Reflex 2.1 mmol/L (0.4-2.0)
[2020-04-04 17:00] VITALS: BP 150/79
[2020-04-04] MEDS: HYOSCYAMINE SULF 0.125 MG ODT TAB PO PRN (18:04)
[2020-04-04] MEDS: ATORVASTATIN 20 MG TAB PO SCH (21:47)
[2020-04-04 22:00] VITALS: BP 167/64
[2020-04-05] MEDS: InsuLIN REG 1unit/0.01ml Soln (100units/ml) SC SCH ×5 (04:00→16:00)
[2020-04-05] MEDS: ACCU-CHEK COMFORT CURVE STRIP VI SCH ×5 (04:00→16:00)
[2020-04-05 04:50] VITALS: BP 141/82
[2020-04-05 06:52] LABS: Basophils # (auto) 0.1 10 ^3/uL (0-0.2); Basophils % (auto) 0.7 % (0.0-2.0); Eosinophils # (auto) 0.4 10 ^3/uL (0-0.8); Eosinophils % (auto) 4.2 % (0.0-7.0); Hematocrit 38.7 % (36.0-46.0); Hemoglobin 13.1 g/dL (12.2-16.2); INR 1.01 (0.9-1.15); Lymphocytes # (auto) 1.4 10 ^3/uL (0.4-5.4); Lymphocytes % (auto) 15.6 % (10.0-50.0); Mean Corpuscular Hemoglobin 31.8 pg (28.0-32.0); Mean Corpuscular Hgb Conc. 33.8 g/dL (32.0-36.0); Mean Corpuscular Volume 94.3 fL (80.0-100.0); Monocytes # (auto) 0.7 10 ^3/uL (0-1.3); Monocytes % (auto) 8.1 % (0.0-12.0); Neutrophils # (auto) 6.5 10 ^3/uL (1.6-8.6); Neutrophils % (auto) 71.4 % (37.0-80.0); Platelet Count (auto) 131 10^3/uL (140-450); Red Blood Cells 4.11 10^6/uL (4.0-5.20); Red Cell Distribution Width 12.9 % (11.8-14.3); White Blood Cell 9.1 10^3/uL (4.4-10.8)
[2020-04-05 07:03] LABS: Albumin 2.7 g/dL (3.4-5.0)
[2020-04-05 07:08] LABS: BUN/Creatinine Ratio 30.2; Bilirubin, Total 0.6 mg/dL (0.2-1.0); Calcium 8.2 mg/dL (8.5-10.1); Total Protein 6.1 g/dL (6.4-8.2)
[2020-04-05] MEDS: CALCIUM ACETATE 667 MG CAP PO SCH ×3 (08:29→17:55)
[2020-04-05] MEDS: INSULIN 70/30 1unit/0.01ml Susp (100units/ml) SC SCH ×2 (08:34→17:57)
[2020-04-05] MEDS: POTASSIUM CHLORIDE 10 MEQ in SODIUM CHLORIDE 0.9% 1,000 ML IV SCH (08:35)
[2020-04-05 09:00] VITALS: BP 150/114
[2020-04-05] MEDS: DOCUSATE SOD 100 MG CAP PO SCH (10:00)
[2020-04-05] MEDS: CARVEDILOL 3.125 MG TAB PO SCH (10:02)
[2020-04-05] MEDS: CLOPIDOGREL BISULFATE 75 MG TAB PO SCH (10:03)
[2020-04-05] MEDS: ASPirin 81 mg TAB PO SCH (10:03)
[2020-04-05] MEDS ORDERED: CAR3125T PO (10:46)
[2020-04-05] MEDS ORDERED: INS7030I SC (10:46)
[2020-04-05] MEDS ORDERED: ATOR20TA50 PO (10:46)
[2020-04-05] MEDS ORDERED: ERGO1CAP23 PO (10:46)
[2020-04-05] MEDS ORDERED: CALC667C5 PO (10:46)
[2020-04-05] MEDS ORDERED: ASPI81CH43 PO (10:46)
[2020-04-05 14:00] VITALS: BP 147/77
[2020-04-05 17:00] VITALS: BP 196/72
[2020-04-05] MEDS ORDERED: cloNIDine HCL 0.1 MG TAB PO ONE (17:30)
[2020-04-05] MEDS ORDERED: NIFEdipine 10 MG CAP PO ONE (17:45)
[2020-04-05] MEDS ORDERED: NIFEdipine ER 30 MG TAB PO ONE (18:00)
== END 2020-04-05 18:45 | disposition home or self-care (01) | DRG 280 ==
LOC: ER 19:40 → EDBD 19:40 → TELE 19:41 → TELE-CENTR 23:39
PROVIDERS: ADMIT Hospitalist; ATTEND Internal Medicine
DX: K70.30 Alcoholic cirrhosis of liver without ascites (principal); N17.0 Acute kidney failure with tubular necrosis; I21.A1 Myocardial infarction type 2; N18.6 End stage renal disease; E87.1 Hypo-osmolality and hyponatremia; E87.5 Hyperkalemia; F15.10 Other stimulant abuse, uncomplicated; E87.6 Hypokalemia; E44.0 Moderate protein-calorie malnutrition; E55.9 Vitamin D deficiency, unspecified; E11.22 Type 2 diabetes mellitus with diabetic chronic kidney disease; E11.65 Type 2 diabetes mellitus with hyperglycemia; M19.90 Unspecified osteoarthritis, unspecified site; E78.5 Hyperlipidemia, unspecified; I12.0 Hypertensive chronic kidney disease with stage 5 chronic kidney disease or end stage renal disease; F10.10 Alcohol abuse, uncomplicated; Z79.1 Long term (current) use of non-steroidal anti-inflammatories (NSAID); Z79.899 Other long term (current) drug therapy; Z79.84 Long term (current) use of oral hypoglycemic drugs; Z80.41 Family history of malignant neoplasm of ovary; Z90.710 Acquired absence of both cervix and uterus; Z79.82 Long term (current) use of aspirin
CPT/HCPCS: 36415; 36600; 71045; 74176; 76775; 80048; 80053; 80061; 80307; 81001; 82105; 82150; 82306; 82570; 82805; 82962; 83036; 83605; 83690; 83735; 84100; 84132; 84156; 84300; 84484; 84550; 85025; 85610; 85730; 86703; 86704; 86706; 86708; 86803; 87045; 87340; 87427; 87493; 93005; G0378; J0610; J0696; J1815; J2001; J2405; J3480

== ENCOUNTER 2020-10-13 20:11 | Emergency (ER) | payer OTHER, MEDICAID ==
[~2020-10-13] VITALS: Ht 160 cm; Wt 56.7 kg
[~2020-10-13 20:11] MED LIST changes: -ALLEVE; +ASPI81CH43 PO; +ATOR20TA50 PO; -BACL10TA PO; +CALC667C5 PO; +CAR3125T PO; -CARI250T; +ERGO1CAP23 PO; -HYDR-1421; -IBUP400T35; +INS7030I SC; -METF-372 PO; -METO25TA93 PO; -NAP500T PO
[2020-10-13] MEDS ORDERED: SODIUM CHLORIDE 0.9% 1,000 ML IVB ONE (20:45)
[2020-10-13 21:40] LABS: Basophils # (auto) 0.1 10 ^3/uL (0-0.2); Basophils % (auto) 1.3 % (0.0-2.0); Eosinophils # (auto) 0.3 10 ^3/uL (0-0.8); Eosinophils % (auto) 3.4 % (0.0-7.0); Hematocrit 46.3 % (36.0-46.0); Hemoglobin 15.3 g/dL (12.2-16.2); Lymphocytes # (auto) 2.2 10 ^3/uL (0.4-5.4); Lymphocytes % (auto) 24.9 % (10.0-50.0); Mean Corpuscular Hemoglobin 31.5 pg (28.0-32.0); Mean Corpuscular Hgb Conc. 33.2 g/dL (32.0-36.0); Mean Corpuscular Volume 95.1 fL (80.0-100.0); Monocytes # (auto) 0.8 10 ^3/uL (0-1.3); Monocytes % (auto) 8.7 % (0.0-12.0); Neutrophils # (auto) 5.4 10 ^3/uL (1.6-8.6); Neutrophils % (auto) 61.7 % (37.0-80.0); Nucleated Red Blood Cells % 0.1 %; Platelet Count (auto) 190 10^3/uL (140-450); Red Blood Cells 4.87 10^6/uL (4.0-5.20); White Blood Cell 8.8 10^3/uL (4.4-10.8)
[2020-10-13 21:48] LABS: Albumin 3.7 g/dL (3.4-5.0); Anion Gap 8 (5-15); Blood Urea Nitrogen 30 mg/dL (7-18); Carbon Dioxide 21 mmol/L (21-32); Chloride 108 mmol/L (98-107); Glucose 207 mg/dL (74-106); Lipase 81 U/L (73-393); Magnesium 2.2 mg/dL (1.6-2.6); Potassium 4.4 mmol/L (3.5-5.1); Sodium 137 mmol/L (136-145)
[2020-10-13 21:50] LABS: INR 1.03 (0.9-1.15); Partial Thromboplastin Time 29.3 sec (23.0-31.2)
[2020-10-13 21:53] LABS: Alanine Aminotransferase 30 U/L (13-56); Alkaline Phosphatase 62 U/L (45-117); Aspartate Aminotransferase 18 U/L (15-37); BUN/Creatinine Ratio 39.5; Bilirubin, Total 0.4 mg/dL (0.2-1.0); GFR African American 98 mL/min; GFR Non-African American 81 mL/min; Total Protein 7.5 g/dL (6.4-8.2)
[2020-10-14 04:50] LABS: Urine Amorphous Crystal FEW /hpf (None Seen); Urine Bacteria FEW /hpf (None Seen); Urine Blood TRACE /uL (Negative); Urine Specific Gravity 1.013 (1.001-1.035); Urine WBC 169 /hpf (0 - 5)
[2020-10-14] MEDS ORDERED: HYDROcodone-ACET 5/325MG TAB PO ONE ×2 (06:30)
[2020-10-14 07:30] VITALS: BP 101/68
== END 2020-10-14 08:10 | disposition home or self-care (01) ==
LOC: EDSEX 20:11 → EDUNIT# 20:11 → EDBD 20:11 → ER 20:17
DX: N13.8 Other obstructive and reflux uropathy (principal); I10 Essential (primary) hypertension; E11.9 Type 2 diabetes mellitus without complications; E78.5 Hyperlipidemia, unspecified; Z79.82 Long term (current) use of aspirin; Z79.899 Other long term (current) drug therapy
CPT/HCPCS: 36415; 71045; 74176; 80053; 81001; 83690; 83735; 84484; 85025; 85610; 85730; 87086; 87088; 87186

== ENCOUNTER → 2020-10-29 | Emergency (ER) | payer MEDICAID, MEDICARE, OTHER | END | disposition left against medical advice (07) | LOC: ER 23:29 | DX: Z46.6 Encounter for fitting and adjustment of urinary device (principal); Z53.21 Procedure and treatment not carried out due to patient leaving prior to being seen by health care provider ==

== ENCOUNTER 2021-11-28 02:51 | Emergency (ER) | payer MEDICARE ==
[~2021-11-28] VITALS: Ht 160 cm; Wt 59.0 kg
[2021-11-28 04:34] LABS: Basophils # (auto) 0.1 10 ^3/uL (0-0.2); Eosinophils # (auto) 0 10 ^3/uL (0-0.8); Eosinophils % (auto) 0.1 % (0.0-7.0)
[2021-11-28 04:36] LABS: Basophils % (auto) 0.9 % (0.0-2.0); Hematocrit 32.5 % (36.0-46.0); Hemoglobin 10.5 g/dL (12.2-16.2); Lymphocytes % (auto) 9.2 % (10.0-50.0); Mean Corpuscular Hemoglobin 26.3 pg (28.0-32.0); Mean Corpuscular Hgb Conc. 32.2 g/dL (32.0-36.0); Mean Corpuscular Volume 81.8 fL (80.0-100.0); Monocytes # (auto) 0.9 10 ^3/uL (0-1.3); Monocytes % (auto) 8.2 % (0.0-12.0); Neutrophils # (auto) 9.2 10 ^3/uL (1.6-8.6); Neutrophils % (auto) 81.6 % (37.0-80.0); Nucleated Red Blood Cells % 0.1 %; Red Blood Cells 3.98 10^6/uL (4.0-5.20); White Blood Cell 11.3 10^3/uL (4.4-10.8)
[2021-11-28 04:54] LABS: Albumin 2.9 g/dL (3.4-5.0); Calcium 8.5 mg/dL (8.5-10.1); Magnesium 2.9 mg/dL (1.6-2.6); Potassium 3.7 mmol/L (3.5-5.1)
[2021-11-28 04:59] LABS: BUN/Creatinine Ratio 38.7; Bilirubin, Total 0.6 mg/dL (0.2-1.0); Total Protein 7.5 g/dL (6.4-8.2)
[2021-11-28 06:30] LABS: Urine Bacteria NONE SEEN /hpf (None Seen); Urine WBC 4 /hpf (0 - 5); Urine WBC Clumps PRESENT /hpf (None Seen)
[2021-11-28 06:32] LABS: Urine Blood Normal /uL (Negative); Urine Specific Gravity 1.015 (1.001-1.035)
[2021-11-28] MEDS ORDERED: cefTRIAXone 1GM/50ML D5W 50 ML IV ONE (11:15)
[2021-11-28 15:12] VITALS: BP 168/67
== END 2021-11-28 15:14 | disposition home or self-care (01) ==
LOC: EDBD 02:51 → ER 02:51
DX: F03.90 Unspecified dementia, unspecified severity, without behavioral disturbance, psychotic disturbance, mood disturbance, and anxiety (principal); R41.82 Altered mental status, unspecified; E11.9 Type 2 diabetes mellitus without complications; E78.5 Hyperlipidemia, unspecified; I10 Essential (primary) hypertension
CPT/HCPCS: 36415; 70450; 71045; 80053; 81001; 83605; 83735; 84484; 85025; 87040; 87086; 93005; 96365; 99285; J0696

== ENCOUNTER 2022-05-07 17:39 | Emergency (ER) | payer MEDICARE, OTHER ==
[~2022-05-07] VITALS: Ht 160 cm; Wt 54.4 kg
[2022-05-07] MEDS ORDERED: cloNIDine HCL 0.1 MG TAB PO ONE (18:00)
[2022-05-07] MEDS ORDERED: METH4PAK PO (19:52)
[2022-05-07] MEDS ORDERED: FLUO0.054 TOP (19:52)
[2022-05-07 20:15] VITALS: BP 179/95
[2022-05-07 21:12] LABS: Urine Bacteria NONE SEEN /hpf (None Seen); Urine Blood 1+ /uL (Negative); Urine Specific Gravity 1.014 (1.001-1.035); Urine WBC 858 /hpf (0 - 5); Urine WBC Clumps PRESENT /hpf (None Seen)
[2022-05-07] MEDS ORDERED: CEPH500T PO (21:20)
== END 2022-05-07 22:14 | disposition home or self-care (01) ==
LOC: ER 17:39
DX: L40.9 Psoriasis, unspecified (principal); I10 Essential (primary) hypertension; E11.9 Type 2 diabetes mellitus without complications; E78.5 Hyperlipidemia, unspecified; Z79.82 Long term (current) use of aspirin; Z79.4 Long term (current) use of insulin; Z79.899 Other long term (current) drug therapy
CPT/HCPCS: 81001

== ENCOUNTER 2022-05-12 15:19 | Inpatient (IN) | payer MEDICARE, OTHER ==
[~2022-05-12] VITALS: Ht 160 cm; Wt 55.2 kg
[~2022-05-12 15:19] MED LIST changes: +CEPH500T PO; +FLUO0.054 TOP
[2022-05-12] MEDS ORDERED: cefTRIAXone 1GM/50ML D5W 50 ML IV ONE (15:30)
[2022-05-12] MEDS ORDERED: SODIUM CHLORIDE 0.9% 1,000 ML IV ONE ×2 (15:30)
[2022-05-12 16:24] LABS: Eosinophils # (auto) 0 10 ^3/uL (0-0.8); Eosinophils % (auto) 0.2 % (0.0-7.0); Hematocrit 29.8 % (36.0-46.0); Lymphocytes # (auto) 1.1 10 ^3/uL (0.4-5.4); Mean Corpuscular Hemoglobin 24.3 pg (28.0-32.0); Monocytes # (auto) 1.1 10 ^3/uL (0-1.3); Monocytes % (auto) 10.4 % (0.0-12.0); White Blood Cell 10.5 10^3/uL (4.4-10.8)
[2022-05-12 16:26] LABS: Basophils # (auto) 0 10 ^3/uL (0-0.2); Basophils % (auto) 0.2 % (0.0-2.0); Hemoglobin 9.2 g/dL (12.2-16.2); Lymphocytes % (auto) 10.4 % (10.0-50.0); Mean Corpuscular Volume 78.5 fL (80.0-100.0); Neutrophils # (auto) 8.3 10 ^3/uL (1.6-8.6); Neutrophils % (auto) 78.8 % (37.0-80.0); Red Blood Cells 3.79 10^6/uL (4.0-5.20)
[2022-05-12 16:38] LABS: Albumin 2.7 g/dL (3.4-5.0); Calcium 7.7 mg/dL (8.5-10.1)
[2022-05-12 16:40] LABS: BUN/Creatinine Ratio 20.7; Bilirubin, Total 0.6 mg/dL (0.2-1.0); Total Protein 6.4 g/dL (6.4-8.2)
[2022-05-12 16:41] LABS: Potassium 2.7 mmol/L (3.5-5.1)
[2022-05-12 16:44] LABS: Urine Bacteria NONE SEEN /hpf (None Seen); Urine Blood 1+ /uL (Negative); Urine Specific Gravity 1.011 (1.001-1.035); Urine WBC 104 /hpf (0 - 5); Urine WBC Clumps PRESENT /hpf (None Seen)
[2022-05-12] MEDS ORDERED: POTASSIUM CHL 20MEQ/100ML 100 ML IV ONE (17:15)
[2022-05-12] MEDS ORDERED: IOHEXOL 350 MG/ML 100ML IJ ONE (18:18)
[2022-05-12] MEDS ORDERED: ACETAMINOPHEN 325 MG TAB PO ONE (18:45)
[2022-05-12 19:25] LABS: Calcium 7.9 mg/dL (8.5-10.1); Potassium 3.3 mmol/L (3.5-5.1)
[2022-05-12 19:27] LABS: BUN/Creatinine Ratio 18.2
[2022-05-12] MEDS ORDERED: DEXTROSE (50%) 50ML SYRG IV PRN (21:30)
[2022-05-12] MEDS ORDERED: ONDANSETRON HCL 4 MG/2 ML VIAL IV PRN (21:30)
[2022-05-12] MEDS: ATORVASTATIN 20 MG TAB PO SCH (22:55)
[2022-05-12] MEDS: CARVEDILOL 3.125 MG TAB PO SCH (22:55)
[2022-05-12] MEDS: ACCU-CHEK COMFORT CURVE STRIP VI SCH (22:56)
[2022-05-12] MEDS: InsuLIN REG 1unit/0.01ml Soln (100units/ml) SC SCH (22:56)
[2022-05-13 03:50] VITALS: BP 157/65
[2022-05-13 05:00] VITALS: BP 157/65
[2022-05-13] MEDS ORDERED: METH4TAB7 PO (05:47)
[2022-05-13] MEDS ORDERED: CEPH500C PO (05:47)
[2022-05-13] MEDS: ACCU-CHEK COMFORT CURVE STRIP VI SCH ×4 (06:21→21:35)
[2022-05-13] MEDS: InsuLIN REG 1unit/0.01ml Soln (100units/ml) SC SCH ×4 (06:21→21:35)
[2022-05-13 07:53] LABS: Basophils # (auto) 0.1 10 ^3/uL (0-0.2); Eosinophils # (auto) 0.1 10 ^3/uL (0-0.8); Lymphocytes # (auto) 1.1 10 ^3/uL (0.4-5.4); Mean Corpuscular Hemoglobin 24.6 pg (28.0-32.0)
[2022-05-13 07:55] LABS: Eosinophils % (auto) 0.6 % (0.0-7.0); Hemoglobin 8.2 g/dL (12.2-16.2); Lymphocytes % (auto) 11.3 % (10.0-50.0); Mean Corpuscular Hgb Conc. 31.6 g/dL (32.0-36.0); Monocytes # (auto) 1.2 10 ^3/uL (0-1.3); Monocytes % (auto) 12.4 % (0.0-12.0); Neutrophils # (auto) 7.2 10 ^3/uL (1.6-8.6); Neutrophils % (auto) 74.7 % (37.0-80.0); Nucleated Red Blood Cells % 0.1 %; Red Blood Cells 3.33 10^6/uL (4.0-5.20); Red Cell Distribution Width 16.8 % (11.8-14.3); White Blood Cell 9.6 10^3/uL (4.4-10.8)
[2022-05-13 08:23] LABS: Albumin 2.2 g/dL (3.4-5.0); Calcium 7.3 mg/dL (8.5-10.1)
[2022-05-13 08:26] LABS: BUN/Creatinine Ratio 20.2; Bilirubin, Total 0.5 mg/dL (0.2-1.0); Total Protein 5.3 g/dL (6.4-8.2)
[2022-05-13 08:38] LABS: Potassium 2.7 mmol/L (3.5-5.1)
[2022-05-13 09:00] VITALS: BP 98/62
[2022-05-13] MEDS: cefTRIAXone 1GM/50ML D5W 50 ML IV SCH (09:28)
[2022-05-13] MEDS: ACETAMINOPHEN 325 MG TAB PO PRN ×2 (09:31→21:36)
[2022-05-13] MEDS: CARVEDILOL 3.125 MG TAB PO SCH ×2 (09:37→21:34)
[2022-05-13] MEDS: LISINOPRIL 5 MG TAB PO SCH (09:38)
[2022-05-13] MEDS ORDERED: ENOXAPARIN SOD 40 MG/0.4 ML SYRINGE SC SCH (10:00)
[2022-05-13] MEDS ORDERED: PANTOPRAZOLE 40 MG TAB PO SCH (10:00)
[2022-05-13 13:00] VITALS: BP 142/63
[2022-05-13] MEDS ORDERED: POTASSIUM CHL 20 Meq TABLET PO ONE (16:15)
[2022-05-13 17:00] VITALS: BP 132/62
[2022-05-13] MEDS: PANTOPRAZOLE 40 MG/10 ML VIAL INJ IV SCH (21:34)
[2022-05-13] MEDS: ATORVASTATIN 20 MG TAB PO SCH (21:34)
[2022-05-13 22:00] VITALS: BP 176/72
[2022-05-14 05:00] VITALS: BP 116/59
[2022-05-14 05:20] LABS: Basophils # (auto) 0.1 10 ^3/uL (0-0.2); Basophils % (auto) 0.8 % (0.0-2.0); Eosinophils # (auto) 0.2 10 ^3/uL (0-0.8); Hemoglobin 8.9 g/dL (12.2-16.2); Lymphocytes # (auto) 1.2 10 ^3/uL (0.4-5.4)
[2022-05-14 05:22] LABS: Eosinophils % (auto) 1.9 % (0.0-7.0); Lymphocytes % (auto) 12.4 % (10.0-50.0); Mean Corpuscular Hemoglobin 24.7 pg (28.0-32.0); Mean Corpuscular Hgb Conc. 31.9 g/dL (32.0-36.0); Mean Corpuscular Volume 77.5 fL (80.0-100.0); Monocytes % (auto) 10.5 % (0.0-12.0); Neutrophils # (auto) 7.1 10 ^3/uL (1.6-8.6); Neutrophils % (auto) 74.4 % (37.0-80.0); Nucleated Red Blood Cells % 0.1 %; Red Blood Cells 3.62 10^6/uL (4.0-5.20); Red Cell Distribution Width 16.8 % (11.8-14.3); White Blood Cell 9.6 10^3/uL (4.4-10.8)
[2022-05-14 05:40] LABS: BUN/Creatinine Ratio 21.4; Calcium 7.7 mg/dL (8.5-10.1); Magnesium 1.9 mg/dL (1.6-2.6); Potassium 3.2 mmol/L (3.5-5.1)
[2022-05-14] MEDS: ACCU-CHEK COMFORT CURVE STRIP VI SCH ×4 (06:30→22:00)
[2022-05-14] MEDS: InsuLIN REG 1unit/0.01ml Soln (100units/ml) SC SCH ×4 (06:30→22:09)
[2022-05-14] MEDS: cefTRIAXone 1GM/50ML D5W 50 ML IV SCH (08:57)
[2022-05-14] MEDS: PANTOPRAZOLE 40 MG/10 ML VIAL INJ IV SCH ×2 (08:57→21:59)
[2022-05-14 08:58] VITALS: BP 160/64
[2022-05-14] MEDS: LISINOPRIL 5 MG TAB PO SCH (09:00)
[2022-05-14] MEDS: CARVEDILOL 3.125 MG TAB PO SCH ×2 (09:01→22:00)
[2022-05-14] MEDS: HYDROcodone-ACET 5/325MG TAB PO PRN ×2 (12:00→18:00)
[2022-05-14] MEDS: hydrALAZINE HCL 20 MG/ML VL IV PRN (12:00)
[2022-05-14 13:00] VITALS: BP 149/64
[2022-05-14] MEDS ORDERED: POTASSIUM CHL 20 Meq TABLET PO ONE (14:00)
[2022-05-14] MEDS ORDERED: IOHEXOL 300 MG/ML 100ML BOTTLE IJ ONE (15:25)
[2022-05-14] MEDS ORDERED: OMNIPAQUE ORAL SOLN 500ml 12mg/ml PO ONE (15:25)
[2022-05-14 16:54] VITALS: BP 105/43
[2022-05-14 22:00] VITALS: BP 125/39
[2022-05-14] MEDS: ATORVASTATIN 20 MG TAB PO SCH (22:00)
[2022-05-15 04:39] VITALS: BP 135/89
[2022-05-15] MEDS: ACCU-CHEK COMFORT CURVE STRIP VI SCH ×4 (06:30→21:59)
[2022-05-15] MEDS: InsuLIN REG 1unit/0.01ml Soln (100units/ml) SC SCH ×4 (06:34→22:10)
[2022-05-15] MEDS: HYDROcodone-ACET 5/325MG TAB PO PRN ×2 (06:37→13:02)
[2022-05-15 07:19] LABS: BUN/Creatinine Ratio 20.3; Calcium 8.1 mg/dL (8.5-10.1); Magnesium 1.8 mg/dL (1.6-2.6); Potassium 3.6 mmol/L (3.5-5.1)
[2022-05-15 07:37] LABS: Basophils # (auto) 0.1 10 ^3/uL (0-0.2); Basophils % (auto) 0.9 % (0.0-2.0); Eosinophils # (auto) 0.3 10 ^3/uL (0-0.8); Hemoglobin 8.1 g/dL (12.2-16.2); Lymphocytes # (auto) 1.4 10 ^3/uL (0.4-5.4); Mean Corpuscular Hemoglobin 24.7 pg (28.0-32.0); Neutrophils # (auto) 5.8 10 ^3/uL (1.6-8.6); Neutrophils % (auto) 68.1 % (37.0-80.0)
[2022-05-15 07:44] LABS: Eosinophils % (auto) 3.6 % (0.0-7.0); Hematocrit 25.5 % (36.0-46.0); Mean Corpuscular Hgb Conc. 31.6 g/dL (32.0-36.0); Mean Corpuscular Volume 78.2 fL (80.0-100.0); Monocytes % (auto) 11.4 % (0.0-12.0); Red Blood Cells 3.26 10^6/uL (4.0-5.20); Red Cell Distribution Width 16.8 % (11.8-14.3); White Blood Cell 8.6 10^3/uL (4.4-10.8)
[2022-05-15 08:56] VITALS: BP 110/51
[2022-05-15] MEDS: PANTOPRAZOLE 40 MG/10 ML VIAL INJ IV SCH ×2 (09:19→21:58)
[2022-05-15] MEDS: cefTRIAXone 1GM/50ML D5W 50 ML IV SCH (09:19)
[2022-05-15] MEDS: LISINOPRIL 5 MG TAB PO SCH (09:20)
[2022-05-15] MEDS: CARVEDILOL 3.125 MG TAB PO SCH ×2 (09:20→21:59)
[2022-05-15 12:12] VITALS: BP 122/63
[2022-05-15] MEDS ORDERED: GOLYTELY 4L KIT PO ONE (15:00)
[2022-05-15 16:42] VITALS: BP 114/84
[2022-05-15] MEDS: ATORVASTATIN 20 MG TAB PO SCH (21:59)
[2022-05-15 22:00] VITALS: BP 155/70
[2022-05-15] MEDS: hydrALAZINE HCL 20 MG/ML VL IV PRN (23:14)
[2022-05-16 02:18] LABS: INR 1.04 (0.9-1.15); Partial Thromboplastin Time 29.1 sec (23.6-33.0)
[2022-05-16 05:00] VITALS: BP 145/86
[2022-05-16] MEDS: ACCU-CHEK COMFORT CURVE STRIP VI SCH ×4 (06:09→22:56)
[2022-05-16] MEDS: InsuLIN REG 1unit/0.01ml Soln (100units/ml) SC SCH ×4 (06:10→22:57)
[2022-05-16 09:00] VITALS: BP_SYST 138; BP_SYST 165; BP_DIAS 68; BP_DIAS 83
[2022-05-16] MEDS ORDERED: MIDAZOLAM HCL 2MG/2ML 2ml VIAL (1mg/ml) ONE (09:24)
[2022-05-16] MEDS ORDERED: PROPOFOL 10 MG/ML 20 ML IV ONE (09:24)
[2022-05-16] MEDS ORDERED: GLYCOPYRROLATE 0.2 MG/ML 1ML VIAL ONE (09:24)
[2022-05-16] MEDS ORDERED: KETAMINE HCL 0 ML ONE (09:24)
[2022-05-16] MEDS ORDERED: ONDANSETRON HCL 4 MG/2 ML VIAL ONE (09:24)
[2022-05-16] MEDS ORDERED: fentaNYL CITRATE 100 MCG/2 ML VL ONE (09:25)
[2022-05-16] MEDS ORDERED: ACCU-CHEK COMFORT CURVE STRIP VI ONE (10:00)
[2022-05-16] MEDS ORDERED: HYDROmorphone HCL 2 MG/ML VL/or syr IV PRN (10:00)
[2022-05-16] MEDS ORDERED: ONDANSETRON HCL 4 MG/2 ML VIAL IV PRN (10:00)
[2022-05-16] MEDS: cefTRIAXone 1GM/50ML D5W 50 ML IV SCH (11:30)
[2022-05-16] MEDS: CARVEDILOL 3.125 MG TAB PO SCH ×2 (11:30→22:42)
[2022-05-16] MEDS: PANTOPRAZOLE 40 MG/10 ML VIAL INJ IV SCH ×2 (11:30→22:39)
[2022-05-16] MEDS: LISINOPRIL 5 MG TAB PO SCH (11:43)
[2022-05-16 13:00] VITALS: BP 138/57
[2022-05-16] MEDS ORDERED: NITROGLYCERIN 0.4 MG SL TAB SL PRN (13:30)
[2022-05-16 14:14] LABS: Basophils # (auto) 0.1 10 ^3/uL (0-0.2); Hematocrit 27.8 % (36.0-46.0); Hemoglobin 8.5 g/dL (12.2-16.2); Monocytes # (auto) 0.6 10 ^3/uL (0-1.3)
[2022-05-16 14:17] LABS: BUN/Creatinine Ratio 17.6; Basophils % (auto) 1.2 % (0.0-2.0); Calcium 8.2 mg/dL (8.5-10.1); Eosinophils # (auto) 0.3 10 ^3/uL (0-0.8); Lymphocytes # (auto) 1.4 10 ^3/uL (0.4-5.4); Lymphocytes % (auto) 20.4 % (10.0-50.0); Magnesium 1.9 mg/dL (1.6-2.6); Mean Corpuscular Hgb Conc. 30.6 g/dL (32.0-36.0); Mean Corpuscular Volume 78.3 fL (80.0-100.0); Monocytes % (auto) 8.8 % (0.0-12.0); Neutrophils # (auto) 4.5 10 ^3/uL (1.6-8.6); Neutrophils % (auto) 65.6 % (37.0-80.0); Nucleated Red Blood Cells % 0.2 %; Potassium 3.2 mmol/L (3.5-5.1); Red Blood Cells 3.54 10^6/uL (4.0-5.20); Red Cell Distribution Width 16.9 % (11.8-14.3); White Blood Cell 6.8 10^3/uL (4.4-10.8)
[2022-05-16] MEDS ORDERED: POTASSIUM CHL 20 Meq TABLET PO ONE (14:30)
[2022-05-16 17:00] VITALS: BP 179/70
[2022-05-16 22:00] VITALS: BP 137/40
[2022-05-16] MEDS: ATORVASTATIN 20 MG TAB PO SCH (22:39)
[2022-05-16 23:52] VITALS: BP 115/64
[2022-05-17] MEDS: D5W/SOD CHL 0.45%/KCL 20MEQ 1,000 ML IV SCH ×2 (03:55→16:35)
[2022-05-17 05:25] LABS: Basophils # (auto) 0.1 10 ^3/uL (0-0.2); Hemoglobin 8.5 g/dL (12.2-16.2); Lymphocytes # (auto) 1.1 10 ^3/uL (0.4-5.4)
[2022-05-17 05:28] LABS: Eosinophils # (auto) 0.2 10 ^3/uL (0-0.8); Eosinophils % (auto) 2.9 % (0.0-7.0); Hematocrit 27.3 % (36.0-46.0); Lymphocytes % (auto) 13.8 % (10.0-50.0); Mean Corpuscular Hemoglobin 24.3 pg (28.0-32.0); Mean Corpuscular Volume 78.3 fL (80.0-100.0); Monocytes # (auto) 0.4 10 ^3/uL (0-1.3); Monocytes % (auto) 4.9 % (0.0-12.0); Neutrophils # (auto) 6.3 10 ^3/uL (1.6-8.6); Neutrophils % (auto) 77.4 % (37.0-80.0); Red Blood Cells 3.49 10^6/uL (4.0-5.20); Red Cell Distribution Width 16.7 % (11.8-14.3); White Blood Cell 8.1 10^3/uL (4.4-10.8)
[2022-05-17] MEDS: InsuLIN REG 1unit/0.01ml Soln (100units/ml) SC SCH ×4 (05:34→22:32)
[2022-05-17] MEDS: ACCU-CHEK COMFORT CURVE STRIP VI SCH ×4 (05:35→22:32)
[2022-05-17 05:43] LABS: BUN/Creatinine Ratio 12.7; Calcium 7.9 mg/dL (8.5-10.1)
[2022-05-17 06:40] LABS: Potassium 3.2 mmol/L (3.5-5.1)
[2022-05-17 09:00] VITALS: BP 146/69
[2022-05-17] MEDS: PANTOPRAZOLE 40 MG/10 ML VIAL INJ IV SCH ×2 (09:07→22:20)
[2022-05-17] MEDS: cefTRIAXone 1GM/50ML D5W 50 ML IV SCH (09:07)
[2022-05-17] MEDS: LISINOPRIL 5 MG TAB PO SCH (09:08)
[2022-05-17] MEDS: CARVEDILOL 3.125 MG TAB PO SCH ×2 (09:08→22:32)
[2022-05-17] MEDS ORDERED: POTASSIUM CHL 20 Meq TABLET PO ONE (10:00)
[2022-05-17] MEDS ORDERED: GOLYTELY 4L KIT PO ONE (10:15)
[2022-05-17] MEDS: ATORVASTATIN 20 MG TAB PO SCH (22:20)
[2022-05-17 22:30] VITALS: BP 187/60
[2022-05-17] MEDS: hydrALAZINE HCL 20 MG/ML VL IV PRN (22:39)
[2022-05-18] MEDS: D5W/SOD CHL 0.45%/KCL 20MEQ 1,000 ML IV SCH ×3 (05:55→23:55)
[2022-05-18 06:02] LABS: Basophils # (auto) 0.1 10 ^3/uL (0-0.2); Basophils % (auto) 1.3 % (0.0-2.0); Eosinophils # (auto) 0.4 10 ^3/uL (0-0.8); Eosinophils % (auto) 5.4 % (0.0-7.0); Hematocrit 27.1 % (36.0-46.0); Hemoglobin 8.4 g/dL (12.2-16.2); Lymphocytes # (auto) 1.9 10 ^3/uL (0.4-5.4); Lymphocytes % (auto) 24.8 % (10.0-50.0); Mean Corpuscular Volume 77.5 fL (80.0-100.0); Monocytes # (auto) 0.5 10 ^3/uL (0-1.3); Neutrophils # (auto) 4.8 10 ^3/uL (1.6-8.6); Neutrophils % (auto) 61.5 % (37.0-80.0); Red Cell Distribution Width 16.5 % (11.8-14.3); White Blood Cell 7.8 10^3/uL (4.4-10.8)
[2022-05-18 06:22] LABS: BUN/Creatinine Ratio 7.6; Calcium 8.3 mg/dL (8.5-10.1); Magnesium 1.9 mg/dL (1.6-2.6); Potassium 3.2 mmol/L (3.5-5.1)
[2022-05-18 06:23] VITALS: BP 109/79
[2022-05-18] MEDS: ACCU-CHEK COMFORT CURVE STRIP VI SCH ×4 (06:27→22:26)
[2022-05-18] MEDS: InsuLIN REG 1unit/0.01ml Soln (100units/ml) SC SCH ×4 (06:41→22:28)
[2022-05-18 09:00] VITALS: BP 144/66
[2022-05-18] MEDS: cefTRIAXone 1GM/50ML D5W 50 ML IV SCH (09:00)
[2022-05-18] MEDS: LISINOPRIL 5 MG TAB PO SCH (10:00)
[2022-05-18] MEDS: PANTOPRAZOLE 40 MG/10 ML VIAL INJ IV SCH ×2 (10:00→22:26)
[2022-05-18] MEDS: CARVEDILOL 3.125 MG TAB PO SCH ×2 (10:00→22:42)
[2022-05-18] MEDS ORDERED: POTASSIUM CHL 20 Meq TABLET PO ONE (12:15)
[2022-05-18 13:00] VITALS: BP 159/77
[2022-05-18] MEDS: HYDROcodone-ACET 5/325MG TAB PO PRN (13:20)
[2022-05-18 17:00] VITALS: BP 149/72
[2022-05-18 21:49] VITALS: BP 182/74
[2022-05-18] MEDS: ATORVASTATIN 20 MG TAB PO SCH (22:26)
[2022-05-18] MEDS: hydrALAZINE HCL 20 MG/ML VL IV PRN (22:43)
[2022-05-19] VITALS (22 sets, daily range): BP systolic 110–191; BP diastolic 52–82
[2022-05-19] MEDS: ACCU-CHEK COMFORT CURVE STRIP VI SCH ×4 (06:45→22:00)
[2022-05-19] MEDS: InsuLIN REG 1unit/0.01ml Soln (100units/ml) SC SCH ×4 (06:45→23:01)
[2022-05-19] MEDS: D5W/SOD CHL 0.45%/KCL 20MEQ 1,000 ML IV SCH ×2 (08:35→20:22)
[2022-05-19] MEDS: cefTRIAXone 1GM/50ML D5W 50 ML IV SCH ×2 (09:28→16:30)
[2022-05-19] MEDS: PANTOPRAZOLE 40 MG/10 ML VIAL INJ IV SCH ×2 (09:29→22:17)
[2022-05-19] MEDS: LISINOPRIL 5 MG TAB PO SCH (09:30)
[2022-05-19] MEDS: HYDROcodone-ACET 5/325MG TAB PO PRN (09:30)
[2022-05-19] MEDS: CARVEDILOL 3.125 MG TAB PO SCH ×2 (09:30→22:00)
[2022-05-19] MEDS ORDERED: POTASSIUM CHL 20 Meq TABLET PO ONE (11:00)
[2022-05-19] MEDS ORDERED: MIDAZOLAM HCL 2MG/2ML 2ml VIAL (1mg/ml) ONE ×2 (13:02→15:54)
[2022-05-19] MEDS ORDERED: fentaNYL CITRATE 100 MCG/2 ML VL ONE ×2 (13:02→15:54)
[2022-05-19] MEDS ORDERED: PROPOFOL 10 MG/ML 20 ML IV ONE ×2 (13:22→18:01)
[2022-05-19] MEDS ORDERED: ONDANSETRON HCL 4 MG/2 ML VIAL ONE (13:22)
[2022-05-19] MEDS ORDERED: ONDANSETRON HCL 4 MG/2 ML VIAL IV PRN ×2 (13:45→17:45)
[2022-05-19] MEDS ORDERED: ROCURONIUM 10MG/ML 10ML VIAL IV ONE (16:02)
[2022-05-19] MEDS ORDERED: cefTRIAXone SOD 1,000 MG VL ONE (16:27)
[2022-05-19] MEDS ORDERED: HYDROmorphone HCL 2 MG/ML VL/or syr IV PRN ×2 (17:45)
[2022-05-19] MEDS ORDERED: MIDAZOLAM DRIP 50 mg/50mL 50 ML IV ONE (18:26)
[2022-05-19] MEDS: MIDAZOLAM DRIP 50 mg/50mL 50 ML IV SCH (18:33)
[2022-05-19] MEDS: hydrALAZINE HCL 20 MG/ML VL IV PRN (20:23)
[2022-05-19] MEDS: ATORVASTATIN 20 MG TAB PO SCH (22:00)
[2022-05-19 22:02] LABS: Basophils # (auto) 0 10 ^3/uL (0-0.2); Eosinophils # (auto) 0 10 ^3/uL (0-0.8); Eosinophils % (auto) 0.1 % (0.0-7.0); Monocytes # (auto) 0.5 10 ^3/uL (0-1.3); Neutrophils # (auto) 9.3 10 ^3/uL (1.6-8.6); Red Blood Cells 4.19 10^6/uL (4.0-5.20)
[2022-05-19 22:03] LABS: Basophils % (auto) 0.3 % (0.0-2.0); Hematocrit 33.3 % (36.0-46.0); Lymphocytes # (auto) 0.6 10 ^3/uL (0.4-5.4); Lymphocytes % (auto) 5.8 % (10.0-50.0); Mean Corpuscular Hemoglobin 23.8 pg (28.0-32.0); Mean Corpuscular Hgb Conc. 29.9 g/dL (32.0-36.0); Mean Corpuscular Volume 79.5 fL (80.0-100.0); Monocytes % (auto) 4.8 % (0.0-12.0); Red Cell Distribution Width 17.2 % (11.8-14.3); White Blood Cell 10.5 10^3/uL (4.4-10.8)
[2022-05-19] MEDS: metroNIDAZOLE 500MG/100ML 100 ML IV SCH (22:17)
[2022-05-19 22:19] LABS: Albumin 1.9 g/dL (3.4-5.0); Calcium 7.1 mg/dL (8.5-10.1); Magnesium 1.7 mg/dL (1.6-2.6)
[2022-05-19 22:22] LABS: BUN/Creatinine Ratio 10.3; Bilirubin, Total 0.5 mg/dL (0.2-1.0); Total Protein 4.8 g/dL (6.4-8.2)
[2022-05-19] MEDS: fentaNYL Drip 2500mCg/250mlNS 250 ML IV SCH (22:23)
[2022-05-19] MEDS ORDERED: MAGNESIUM SULFATE 1GM/100ML 100 ML IV ONE (23:00)
[2022-05-19] MEDS ORDERED: POTASSIUM CHL 20MEQ/100ML 100 ML IV ONE (23:00)
[2022-05-20] VITALS (101 sets, daily range): BP systolic 86–133; BP diastolic 26–61
[2022-05-20] MEDS: MIDAZOLAM DRIP 50 mg/50mL 50 ML IV SCH (01:40)
[2022-05-20 05:29] LABS: Basophils # (auto) 0 10 ^3/uL (0-0.2); Basophils % (auto) 0.1 % (0.0-2.0); Eosinophils # (auto) 0 10 ^3/uL (0-0.8); Hematocrit 31.1 % (36.0-46.0); Lymphocytes % (auto) 4.1 % (10.0-50.0); White Blood Cell 18.4 10^3/uL (4.4-10.8)
[2022-05-20] MEDS: metroNIDAZOLE 500MG/100ML 100 ML IV SCH ×3 (05:30→21:33)
[2022-05-20 05:37] LABS: Hemoglobin 9.4 g/dL (12.2-16.2); Lymphocytes # (auto) 0.8 10 ^3/uL (0.4-5.4); Mean Corpuscular Hemoglobin 23.7 pg (28.0-32.0); Mean Corpuscular Hgb Conc. 30.2 g/dL (32.0-36.0); Mean Corpuscular Volume 78.4 fL (80.0-100.0); Monocytes # (auto) 0.7 10 ^3/uL (0-1.3); Monocytes % (auto) 3.7 % (0.0-12.0); Neutrophils # (auto) 16.9 10 ^3/uL (1.6-8.6); Neutrophils % (auto) 92.1 % (37.0-80.0); Red Blood Cells 3.97 10^6/uL (4.0-5.20)
[2022-05-20 05:46] LABS: Albumin 1.9 g/dL (3.4-5.0); Calcium 7.3 mg/dL (8.5-10.1); Potassium 3.2 mmol/L (3.5-5.1)
[2022-05-20 05:51] LABS: BUN/Creatinine Ratio 8.9; Bilirubin, Total 0.4 mg/dL (0.2-1.0)
[2022-05-20] MEDS: ACCU-CHEK COMFORT CURVE STRIP VI SCH ×3 (06:49→18:10)
[2022-05-20] MEDS: InsuLIN REG 1unit/0.01ml Soln (100units/ml) SC SCH ×3 (06:53→18:11)
[2022-05-20] MEDS: cefTRIAXone 1GM/50ML D5W 50 ML IV SCH (09:00)
[2022-05-20] MEDS: LISINOPRIL 5 MG TAB PO SCH (10:00)
[2022-05-20] MEDS: CARVEDILOL 3.125 MG TAB PO SCH ×2 (10:00→21:33)
[2022-05-20] MEDS: PANTOPRAZOLE 40 MG/10 ML VIAL INJ IV SCH ×2 (10:36→21:32)
[2022-05-20] MEDS: POTASSIUM CHL 20MEQ/100ML 100 ML IV SCH ×2 (10:41→12:33)
[2022-05-20 11:09] LABS: INR 1.19 (0.9-1.15)
[2022-05-20] MEDS ORDERED: TPN PER PHARMACY 0 ML IV SCH (13:00)
[2022-05-20] MEDS ORDERED: DEXTROSE (50%) 50ML SYRG IV SCH (15:00)
[2022-05-20] MEDS ORDERED: LIDOCAINE 1% (LOCAL ANESTH.) PF 5ml SDV ID ONE (15:15)
[2022-05-20] MEDS: D5W/SOD CHL 0.45%/KCL 20MEQ 1,000 ML IV SCH (15:21)
[2022-05-20] MEDS ORDERED: FUROSEMIDE 20 MG/2 ML VIAL IV ONE (18:30)
[2022-05-20] MEDS ORDERED: FUROSEMIDE 20 MG/2 ML VIAL ONE (18:43)
[2022-05-20] MEDS ORDERED: CLINIMIX PER PHARMACY IV NR (20:00)
[2022-05-20] MEDS: fentaNYL Drip 2500mCg/250mlNS 250 ML IV SCH (21:00)
[2022-05-20] MEDS: SODIUM CHLOR 0.9% PF (SALINE LOCK) 10ML VIAL/SYR IV SCH (21:33)
[2022-05-20] MEDS: ATORVASTATIN 20 MG TAB PO SCH (21:34)
[2022-05-21] VITALS (82 sets, daily range): BP systolic 103–184; BP diastolic 43–74
[2022-05-21] MEDS: D5W/SOD CHL 0.45%/KCL 20MEQ 1,000 ML IV SCH (05:09)
[2022-05-21 05:25] LABS: Basophils # (auto) 0.1 10 ^3/uL (0-0.2); Eosinophils # (auto) 0.3 10 ^3/uL (0-0.8); Hemoglobin 7.7 g/dL (12.2-16.2); Lymphocytes # (auto) 0.8 10 ^3/uL (0.4-5.4); Neutrophils # (auto) 12.9 10 ^3/uL (1.6-8.6)
[2022-05-21 05:33] LABS: Albumin 1.7 g/dL (3.4-5.0); Basophils % (auto) 0.6 % (0.0-2.0); Calcium 7.4 mg/dL (8.5-10.1); Hematocrit 25.1 % (36.0-46.0); Lymphocytes % (auto) 5.3 % (10.0-50.0); Magnesium 1.8 mg/dL (1.6-2.6); Mean Corpuscular Hemoglobin 24.3 pg (28.0-32.0); Mean Corpuscular Hgb Conc. 30.6 g/dL (32.0-36.0); Mean Corpuscular Volume 79.4 fL (80.0-100.0); Monocytes # (auto) 0.6 10 ^3/uL (0-1.3); Monocytes % (auto) 4.3 % (0.0-12.0); Neutrophils % (auto) 87.8 % (37.0-80.0); Potassium 3.9 mmol/L (3.5-5.1); Red Blood Cells 3.15 10^6/uL (4.0-5.20); Red Cell Distribution Width 17.3 % (11.8-14.3); White Blood Cell 14.6 10^3/uL (4.4-10.8)
[2022-05-21 05:40] LABS: BUN/Creatinine Ratio 13.5; Bilirubin, Total 0.2 mg/dL (0.2-1.0); Phosphorus 2.6 mg/dL (2.5-4.90); Total Protein 4.7 g/dL (6.4-8.2)
[2022-05-21] MEDS: metroNIDAZOLE 500MG/100ML 100 ML IV SCH ×3 (05:40→21:37)
[2022-05-21] MEDS: ACCU-CHEK COMFORT CURVE STRIP VI SCH ×5 (06:05→23:47)
[2022-05-21] MEDS: InsuLIN REG 1unit/0.01ml Soln (100units/ml) SC SCH ×5 (06:11→23:48)
[2022-05-21] MEDS: CARVEDILOL 3.125 MG TAB PO SCH ×2 (10:00→21:33)
[2022-05-21] MEDS: LISINOPRIL 5 MG TAB PO SCH (10:00)
[2022-05-21] MEDS: cefTRIAXone 1GM/50ML D5W 50 ML IV SCH (10:09)
[2022-05-21] MEDS: PANTOPRAZOLE 40 MG/10 ML VIAL INJ IV SCH ×2 (10:09→21:37)
[2022-05-21] MEDS: SODIUM CHLOR 0.9% PF (SALINE LOCK) 10ML VIAL/SYR IV SCH ×2 (10:16→22:42)
[2022-05-21] MEDS: hydrALAZINE HCL 20 MG/ML VL IV PRN ×2 (11:36→17:01)
[2022-05-21] MEDS ORDERED: VANCOMYCIN HCL 1000 MG VL IR ONE (13:45)
[2022-05-21] MEDS ORDERED: FUROSEMIDE 40 MG/4 ML VIAL IV ONE (13:45)
[2022-05-21] MEDS ORDERED: VANCOMYCIN PER PHARMACY 0 MG IV SCH (13:45)
[2022-05-21] MEDS: MORPHINE SULFATE INJ 2 MG/ml SYRG IV PRN ×2 (15:14)
[2022-05-21] MEDS ORDERED: VANCOMYCIN 1GM/250ML 250 ML IV ONE (16:30)
[2022-05-21] MEDS: MIDAZOLAM DRIP 50 mg/50mL 50 ML IV SCH (17:07)
[2022-05-21 17:08] LABS: Potassium 3.4 mmol/L (3.5-5.1)
[2022-05-21 17:10] LABS: Magnesium 1.7 mg/dL (1.6-2.6)
[2022-05-21] MEDS: POTASSIUM CHL 20MEQ/100ML 100 ML IV SCH ×2 (17:56→19:16)
[2022-05-21] MEDS ORDERED: TPN PER PHARMACY IV NR ×9 (20:00)
[2022-05-21] MEDS: fentaNYL Drip 2500mCg/250mlNS 250 ML IV SCH (21:00)
[2022-05-21] MEDS: ATORVASTATIN 20 MG TAB PO SCH (21:34)
[2022-05-21] MEDS: MAGNESIUM SULFATE 1GM/100ML 100 ML IV SCH ×2 (21:37→22:42)
[2022-05-21] MEDS ORDERED: MAGNESIUM SULFATE 1GM/100ML 100 ML IV ONE (22:42)
[2022-05-22] VITALS (47 sets, daily range): BP systolic 76–174; BP diastolic 39–74
[2022-05-22 05:03] LABS: Basophils # (auto) 0.1 10 ^3/uL (0-0.2); Eosinophils # (auto) 0.3 10 ^3/uL (0-0.8); Hemoglobin 7.9 g/dL (12.2-16.2); Lymphocytes # (auto) 0.8 10 ^3/uL (0.4-5.4); Monocytes # (auto) 0.4 10 ^3/uL (0-1.3); White Blood Cell 15.9 10^3/uL (4.4-10.8)
[2022-05-22 05:05] LABS: Basophils % (auto) 0.3 % (0.0-2.0); Eosinophils % (auto) 1.7 % (0.0-7.0); Hematocrit 25.2 % (36.0-46.0); Lymphocytes % (auto) 5.1 % (10.0-50.0); Mean Corpuscular Hemoglobin 24.3 pg (28.0-32.0); Mean Corpuscular Hgb Conc. 31.4 g/dL (32.0-36.0); Mean Corpuscular Volume 77.3 fL (80.0-100.0); Monocytes % (auto) 2.6 % (0.0-12.0); Neutrophils # (auto) 14.3 10 ^3/uL (1.6-8.6); Neutrophils % (auto) 90.3 % (37.0-80.0); Red Blood Cells 3.26 10^6/uL (4.0-5.20); Red Cell Distribution Width 17.6 % (11.8-14.3)
[2022-05-22 05:21] LABS: Magnesium 2.5 mg/dL (1.6-2.6); Potassium 3.2 mmol/L (3.5-5.1)
[2022-05-22 05:24] LABS: Albumin 1.6 g/dL (3.4-5.0); BUN/Creatinine Ratio 14.7
[2022-05-22 05:26] LABS: Bilirubin, Total 0.2 mg/dL (0.2-1.0); Phosphorus 1.7 mg/dL (2.5-4.90); Total Protein 4.8 g/dL (6.4-8.2)
[2022-05-22] MEDS: metroNIDAZOLE 500MG/100ML 100 ML IV SCH ×3 (06:09→21:07)
[2022-05-22] MEDS: InsuLIN REG 1unit/0.01ml Soln (100units/ml) SC SCH ×3 (06:10→17:21)
[2022-05-22] MEDS: ACCU-CHEK COMFORT CURVE STRIP VI SCH ×3 (06:10→18:00)
[2022-05-22] MEDS ORDERED: POTASSIUM PHOSPHATE 26.4 MEQ in SODIUM CHL 0.9% 100 ML IV ONE (09:30)
[2022-05-22] MEDS: cefTRIAXone 1GM/50ML D5W 50 ML IV SCH (09:55)
[2022-05-22] MEDS: PANTOPRAZOLE 40 MG/10 ML VIAL INJ IV SCH ×2 (09:56→21:07)
[2022-05-22] MEDS: CARVEDILOL 3.125 MG TAB PO SCH ×3 (09:56→21:19)
[2022-05-22] MEDS: FUROSEMIDE 40 MG/4 ML VIAL IV SCH (09:56)
[2022-05-22] MEDS: LISINOPRIL 5 MG TAB PO SCH ×2 (09:57→10:00)
[2022-05-22] MEDS: SODIUM CHLOR 0.9% PF (SALINE LOCK) 10ML VIAL/SYR IV SCH ×2 (10:15→23:03)
[2022-05-22] MEDS: hydrALAZINE HCL 20 MG/ML VL IV PRN (13:14)
[2022-05-22] MEDS ORDERED: VANCOMYCIN 750mg/250ml 250 ML IV SCH (17:00)
[2022-05-22] MEDS: MIDAZOLAM DRIP 50 mg/50mL 50 ML IV SCH (18:30)
[2022-05-22] MEDS ORDERED: TPN PER PHARMACY IV NR ×10 (20:00)
[2022-05-22] MEDS: fentaNYL Drip 2500mCg/250mlNS 250 ML IV SCH (21:00)
[2022-05-22] MEDS: ATORVASTATIN 20 MG TAB PO SCH (21:08)
[2022-05-22] MEDS: LINEZOLID 600MG/300ML 300 ML IV SCH (23:03)
[2022-05-23] VITALS (35 sets, daily range): BP systolic 93–165; BP diastolic 39–120
[2022-05-23] MEDS: ACCU-CHEK COMFORT CURVE STRIP VI SCH ×4 (01:16→18:02)
[2022-05-23] MEDS: InsuLIN REG 1unit/0.01ml Soln (100units/ml) SC SCH ×4 (01:17→17:44)
[2022-05-23] MEDS: MORPHINE SULFATE INJ 2 MG/ml SYRG IV PRN ×5 (02:38→21:16)
[2022-05-23 05:25] LABS: Potassium 3.1 mmol/L (3.5-5.1)
[2022-05-23 05:35] LABS: Albumin 1.8 g/dL (3.4-5.0); BUN/Creatinine Ratio 23.1; Bilirubin, Total 0.2 mg/dL (0.2-1.0); Calcium 7.2 mg/dL (8.5-10.1); Magnesium 2.3 mg/dL (1.6-2.6); Phosphorus 3.2 mg/dL (2.5-4.90); Total Protein 5.2 g/dL (6.4-8.2)
[2022-05-23] MEDS: metroNIDAZOLE 500MG/100ML 100 ML IV SCH ×3 (06:07→21:05)
[2022-05-23] MEDS: cefTRIAXone 1GM/50ML D5W 50 ML IV SCH (07:48)
[2022-05-23] MEDS: LINEZOLID 600MG/300ML 300 ML IV SCH ×2 (09:49→22:13)
[2022-05-23] MEDS: PANTOPRAZOLE 40 MG/10 ML VIAL INJ IV SCH ×2 (09:50→21:05)
[2022-05-23] MEDS: FUROSEMIDE 40 MG/4 ML VIAL IV SCH (09:50)
[2022-05-23] MEDS: LISINOPRIL 5 MG TAB PO SCH (10:00)
[2022-05-23] MEDS: CARVEDILOL 3.125 MG TAB PO SCH ×2 (10:00→21:06)
[2022-05-23] MEDS: SODIUM CHLOR 0.9% PF (SALINE LOCK) 10ML VIAL/SYR IV SCH ×2 (10:10→21:05)
[2022-05-23] MEDS: POTASSIUM CHL 20MEQ/100ML 100 ML IV SCH ×2 (10:48→12:40)
[2022-05-23] MEDS ORDERED: POTASSIUM CHL 20MEQ/100ML 100 ML IV ONE (11:30)
[2022-05-23 12:53] LABS: Eosinophils # (auto) 0.6 10 ^3/uL (0-0.8); Lymphocytes # (auto) 0.8 10 ^3/uL (0.4-5.4)
[2022-05-23 12:54] LABS: Basophils # (auto) 0 10 ^3/uL (0-0.2); Basophils % (auto) 0.4 % (0.0-2.0); Hematocrit 24.7 % (36.0-46.0); Hemoglobin 7.5 g/dL (12.2-16.2); Lymphocytes % (auto) 7.3 % (10.0-50.0); Mean Corpuscular Hemoglobin 23.5 pg (28.0-32.0); Mean Corpuscular Hgb Conc. 30.5 g/dL (32.0-36.0); Monocytes # (auto) 0.6 10 ^3/uL (0-1.3); Neutrophils # (auto) 9.4 10 ^3/uL (1.6-8.6); Neutrophils % (auto) 82.3 % (37.0-80.0); Red Cell Distribution Width 16.7 % (11.8-14.3); White Blood Cell 11.4 10^3/uL (4.4-10.8)
[2022-05-23] MEDS: ACETAMINOPHEN 650 MG RECT SUPP PR PRN ×2 (15:15→16:59)
[2022-05-23 15:46] LABS: Urine Bacteria FEW /hpf (None Seen); Urine Blood Negative /uL (Negative); Urine Hyaline Cast FEW /lpf (0 - 2); Urine Specific Gravity 1.007 (1.001-1.035); Urine WBC 6 /hpf (0 - 5)
[2022-05-23] MEDS ORDERED: POTASSIUM EFFERVESENT TAB 25 MEQ PO ONE (17:30)
[2022-05-23] MEDS: MIDAZOLAM DRIP 50 mg/50mL 50 ML IV SCH (18:30)
[2022-05-23] MEDS ORDERED: TPN PER PHARMACY IV NR ×10 (20:00)
[2022-05-23] MEDS: fentaNYL Drip 2500mCg/250mlNS 250 ML IV SCH (21:00)
[2022-05-23] MEDS: ATORVASTATIN 20 MG TAB PO SCH (21:06)
[2022-05-24] VITALS (16 sets, daily range): BP systolic 107–153; BP diastolic 44–68
[2022-05-24] MEDS: ACCU-CHEK COMFORT CURVE STRIP VI SCH ×4 (00:01→17:33)
[2022-05-24] MEDS: InsuLIN REG 1unit/0.01ml Soln (100units/ml) SC SCH ×4 (00:04→17:33)
[2022-05-24] MEDS: MORPHINE SULFATE INJ 2 MG/ml SYRG IV PRN ×4 (00:08→09:39)
[2022-05-24] MEDS: hydrALAZINE HCL 20 MG/ML VL IV PRN (02:50)
[2022-05-24] MEDS: ACETAMINOPHEN 325 MG TAB PO PRN ×2 (03:18→19:02)
[2022-05-24 05:30] LABS: Basophils # (auto) 0.1 10 ^3/uL (0-0.2); Basophils % (auto) 0.7 % (0.0-2.0); Eosinophils # (auto) 0.6 10 ^3/uL (0-0.8); Eosinophils % (auto) 7.4 % (0.0-7.0); Hemoglobin 8.4 g/dL (12.2-16.2); Lymphocytes # (auto) 0.9 10 ^3/uL (0.4-5.4); Lymphocytes % (auto) 11.5 % (10.0-50.0); Mean Corpuscular Hemoglobin 25.6 pg (28.0-32.0); Mean Corpuscular Hgb Conc. 32.3 g/dL (32.0-36.0); Mean Corpuscular Volume 79.1 fL (80.0-100.0); Monocytes # (auto) 0.7 10 ^3/uL (0-1.3); Monocytes % (auto) 8.5 % (0.0-12.0); Neutrophils # (auto) 5.9 10 ^3/uL (1.6-8.6); Neutrophils % (auto) 71.9 % (37.0-80.0); Red Blood Cells 3.28 10^6/uL (4.0-5.20); Red Cell Distribution Width 17.7 % (11.8-14.3); White Blood Cell 8.2 10^3/uL (4.4-10.8)
[2022-05-24] MEDS: metroNIDAZOLE 500MG/100ML 100 ML IV SCH ×3 (05:39→22:28)
[2022-05-24 05:51] LABS: Potassium 3.2 mmol/L (3.5-5.1)
[2022-05-24 06:02] LABS: Albumin 1.7 g/dL (3.4-5.0); BUN/Creatinine Ratio 28.8; Bilirubin, Total 0.4 mg/dL (0.2-1.0); Phosphorus 2.8 mg/dL (2.5-4.90); Total Protein 4.9 g/dL (6.4-8.2)
[2022-05-24] MEDS: cefTRIAXone 1GM/50ML D5W 50 ML IV SCH (09:37)
[2022-05-24] MEDS: PANTOPRAZOLE 40 MG/10 ML VIAL INJ IV SCH ×2 (09:39→22:24)
[2022-05-24] MEDS: FUROSEMIDE 40 MG/4 ML VIAL IV SCH (09:39)
[2022-05-24] MEDS: CARVEDILOL 3.125 MG TAB PO SCH ×2 (10:00→22:00)
[2022-05-24] MEDS: LISINOPRIL 5 MG TAB PO SCH (10:00)
[2022-05-24] MEDS ORDERED: POTASSIUM CHL 20MEQ/100ML 100 ML IV ONE (10:30)
[2022-05-24] MEDS: LINEZOLID 600MG/300ML 300 ML IV SCH ×2 (11:26→22:28)
[2022-05-24] MEDS: SODIUM CHLOR 0.9% PF (SALINE LOCK) 10ML VIAL/SYR IV SCH ×2 (11:29→22:28)
[2022-05-24] MEDS: POTASSIUM CHL 20MEQ/100ML 100 ML IV SCH ×2 (12:10→14:28)
[2022-05-24] MEDS: MORPHINE SULFATE 4 MG/ML SYR/VIAL IV PRN ×3 (14:27→22:26)
[2022-05-24] MEDS: MIDAZOLAM DRIP 50 mg/50mL 50 ML IV SCH (18:30)
[2022-05-24] MEDS ORDERED: TPN PER PHARMACY IV NR ×11 (20:00)
[2022-05-24] MEDS: fentaNYL Drip 2500mCg/250mlNS 250 ML IV SCH (21:00)
[2022-05-24] MEDS: ATORVASTATIN 20 MG TAB PO SCH (22:32)
[2022-05-25] VITALS: BP 137/56
[2022-05-25] MEDS: InsuLIN REG 1unit/0.01ml Soln (100units/ml) SC SCH ×5 (01:00→23:59)
[2022-05-25 02:00] VITALS: BP 134/64
[2022-05-25 04:00] VITALS: BP 144/76
[2022-05-25] MEDS: MORPHINE SULFATE 4 MG/ML SYR/VIAL IV PRN ×2 (04:10→11:34)
[2022-05-25] MEDS: ACETAMINOPHEN 325 MG TAB PO PRN (04:10)
[2022-05-25] MEDS: ACCU-CHEK COMFORT CURVE STRIP VI SCH ×5 (06:00→23:44)
[2022-05-25] MEDS: metroNIDAZOLE 500MG/100ML 100 ML IV SCH ×3 (06:00→21:32)
[2022-05-25] MEDS: cefTRIAXone 1GM/50ML D5W 50 ML IV SCH (08:34)
[2022-05-25 09:24] LABS: Potassium 3.8 mmol/L (3.5-5.1)
[2022-05-25 09:31] LABS: Albumin 1.9 g/dL (3.4-5.0); BUN/Creatinine Ratio 32.4; Bilirubin, Total 0.3 mg/dL (0.2-1.0); Calcium 7.3 mg/dL (8.5-10.1); Phosphorus 2.7 mg/dL (2.5-4.90); Total Protein 5.4 g/dL (6.4-8.2)
[2022-05-25] MEDS ORDERED: TRIAMCINOLONE ACET0.5% TOPICAL CRE 15GM TOP SCH (10:00)
[2022-05-25] MEDS: CARVEDILOL 3.125 MG TAB PO SCH ×2 (10:00→21:32)
[2022-05-25] MEDS: PANTOPRAZOLE 40 MG/10 ML VIAL INJ IV SCH ×2 (10:00→21:32)
[2022-05-25] MEDS: LISINOPRIL 5 MG TAB PO SCH (10:00)
[2022-05-25] MEDS: FUROSEMIDE 40 MG/4 ML VIAL IV SCH (10:01)
[2022-05-25] MEDS: LINEZOLID 600MG/300ML 300 ML IV SCH ×2 (10:01→21:34)
[2022-05-25 12:00] VITALS: BP 157/71
[2022-05-25] MEDS: SODIUM CHLOR 0.9% PF (SALINE LOCK) 10ML VIAL/SYR IV SCH ×2 (12:22→21:32)
[2022-05-25 15:00] VITALS: BP 150/61
[2022-05-25] MEDS ORDERED: HALOPERIDOL 5 MG TAB PO PRN (16:00)
[2022-05-25] MEDS ORDERED: TPN PER PHARMACY IV NR ×12 (20:00)
[2022-05-25] MEDS: ATORVASTATIN 20 MG TAB PO SCH (21:32)
[2022-05-26] MEDS: metroNIDAZOLE 500MG/100ML 100 ML IV SCH ×3 (05:41→21:33)
[2022-05-26] MEDS: ACCU-CHEK COMFORT CURVE STRIP VI SCH ×3 (05:41→17:49)
[2022-05-26] MEDS: InsuLIN REG 1unit/0.01ml Soln (100units/ml) SC SCH ×3 (05:56→17:52)
[2022-05-26] MEDS: ACETAMINOPHEN 325 MG TAB PO PRN ×2 (05:56→14:12)
[2022-05-26 07:29] LABS: Basophils # (auto) 0.1 10 ^3/uL (0-0.2); Eosinophils # (auto) 0.4 10 ^3/uL (0-0.8); Lymphocytes # (auto) 1.4 10 ^3/uL (0.4-5.4); Lymphocytes % (auto) 10.9 % (10.0-50.0); Red Blood Cells 3.59 10^6/uL (4.0-5.20); Red Cell Distribution Width 17.8 % (11.8-14.3); White Blood Cell 12.9 10^3/uL (4.4-10.8)
[2022-05-26 07:30] LABS: Basophils % (auto) 0.6 % (0.0-2.0); Eosinophils % (auto) 3.2 % (0.0-7.0); Mean Corpuscular Volume 77.9 fL (80.0-100.0); Monocytes # (auto) 0.9 10 ^3/uL (0-1.3); Monocytes % (auto) 7.1 % (0.0-12.0); Neutrophils # (auto) 10.1 10 ^3/uL (1.6-8.6); Neutrophils % (auto) 78.2 % (37.0-80.0)
[2022-05-26 07:48] LABS: BUN/Creatinine Ratio 33.3; Calcium 7.7 mg/dL (8.5-10.1); Magnesium 2.1 mg/dL (1.6-2.6); Potassium 3.9 mmol/L (3.5-5.1)
[2022-05-26 07:51] LABS: Bilirubin, Total 0.2 mg/dL (0.2-1.0); Total Protein 5.4 g/dL (6.4-8.2)
[2022-05-26] MEDS: LINEZOLID 600MG/300ML 300 ML IV SCH ×2 (10:00→21:36)
[2022-05-26] MEDS: LISINOPRIL 5 MG TAB PO SCH (10:00)
[2022-05-26] MEDS: CARVEDILOL 3.125 MG TAB PO SCH ×2 (10:00→22:00)
[2022-05-26] MEDS: SODIUM CHLOR 0.9% PF (SALINE LOCK) 10ML VIAL/SYR IV SCH ×2 (10:00→21:36)
[2022-05-26] MEDS: PANTOPRAZOLE 40 MG/10 ML VIAL INJ IV SCH ×2 (10:32→21:36)
[2022-05-26] MEDS: cefTRIAXone 1GM/50ML D5W 50 ML IV SCH (10:32)
[2022-05-26] MEDS: FUROSEMIDE 40 MG/4 ML VIAL IV SCH (10:33)
[2022-05-26] MEDS ORDERED: TPN PER PHARMACY IV NR ×13 (20:00)
[2022-05-26] MEDS: ATORVASTATIN 20 MG TAB PO SCH (21:33)
[2022-05-27] MEDS: ACCU-CHEK COMFORT CURVE STRIP VI SCH ×3 (00:03→11:54)
[2022-05-27] MEDS: InsuLIN REG 1unit/0.01ml Soln (100units/ml) SC SCH ×3 (00:06→11:58)
[2022-05-27 06:00] LABS: Basophils # (auto) 0.1 10 ^3/uL (0-0.2); Eosinophils # (auto) 0.1 10 ^3/uL (0-0.8); Red Cell Distribution Width 18.4 % (11.8-14.3)
[2022-05-27 06:02] LABS: Basophils % (auto) 0.7 % (0.0-2.0); Hematocrit 28.9 % (36.0-46.0); Lymphocytes # (auto) 1.7 10 ^3/uL (0.4-5.4); Lymphocytes % (auto) 13.2 % (10.0-50.0); Mean Corpuscular Hemoglobin 24.4 pg (28.0-32.0); Mean Corpuscular Hgb Conc. 31.2 g/dL (32.0-36.0); Mean Corpuscular Volume 78.5 fL (80.0-100.0); Monocytes % (auto) 7.9 % (0.0-12.0); Neutrophils # (auto) 9.8 10 ^3/uL (1.6-8.6); Neutrophils % (auto) 77.2 % (37.0-80.0); Red Blood Cells 3.69 10^6/uL (4.0-5.20); White Blood Cell 12.8 10^3/uL (4.4-10.8)
[2022-05-27] MEDS: metroNIDAZOLE 500MG/100ML 100 ML IV SCH ×3 (06:14→21:21)
[2022-05-27 06:19] LABS: Albumin 1.9 g/dL (3.4-5.0); Calcium 7.7 mg/dL (8.5-10.1); Potassium 3.4 mmol/L (3.5-5.1)
[2022-05-27 06:25] LABS: BUN/Creatinine Ratio 37.7; Bilirubin, Total 0.3 mg/dL (0.2-1.0); Magnesium 2.2 mg/dL (1.6-2.6); Phosphorus 3.6 mg/dL (2.5-4.90); Total Protein 5.7 g/dL (6.4-8.2)
[2022-05-27 09:00] VITALS: BP 95/49
[2022-05-27] MEDS: LINEZOLID 600MG/300ML 300 ML IV SCH ×2 (09:46→21:21)
[2022-05-27] MEDS: FUROSEMIDE 40 MG/4 ML VIAL IV SCH (09:46)
[2022-05-27] MEDS: SODIUM CHLOR 0.9% PF (SALINE LOCK) 10ML VIAL/SYR IV SCH ×2 (09:46→21:22)
[2022-05-27] MEDS: PANTOPRAZOLE 40 MG/10 ML VIAL INJ IV SCH ×2 (09:46→21:21)
[2022-05-27] MEDS: LISINOPRIL 5 MG TAB PO SCH (09:47)
[2022-05-27] MEDS: CARVEDILOL 3.125 MG TAB PO SCH ×2 (09:47→21:22)
[2022-05-27] MEDS: ACETAMINOPHEN 325 MG TAB PO PRN ×2 (10:31→22:39)
[2022-05-27] MEDS ORDERED: POTASSIUM CHL 20 Meq TABLET PO ONE (11:30)
[2022-05-27] MEDS ORDERED: POTASSIUM CHL 20MEQ/100ML 100 ML IV ONE (11:30)
[2022-05-27 13:00] VITALS: BP 91/51
[2022-05-27 17:00] VITALS: BP 92/55
[2022-05-27] MEDS ORDERED: TPN PER PHARMACY IV NR ×12 (20:00)
[2022-05-27] MEDS: ATORVASTATIN 20 MG TAB PO SCH (21:22)
[2022-05-27 21:55] VITALS: BP 96/55
[2022-05-28 05:00] VITALS: BP 104/59
[2022-05-28] MEDS: metroNIDAZOLE 500MG/100ML 100 ML IV SCH ×3 (05:25→21:23)
[2022-05-28 05:27] LABS: Basophils # (auto) 0.1 10 ^3/uL (0-0.2); Basophils % (auto) 0.8 % (0.0-2.0); Eosinophils # (auto) 0.3 10 ^3/uL (0-0.8); Eosinophils % (auto) 2.8 % (0.0-7.0); Hematocrit 29.4 % (36.0-46.0); Hemoglobin 9.3 g/dL (12.2-16.2); Lymphocytes # (auto) 1.5 10 ^3/uL (0.4-5.4); Lymphocytes % (auto) 14.9 % (10.0-50.0); Mean Corpuscular Hemoglobin 24.7 pg (28.0-32.0); Mean Corpuscular Hgb Conc. 31.7 g/dL (32.0-36.0); Mean Corpuscular Volume 77.9 fL (80.0-100.0); Monocytes # (auto) 0.7 10 ^3/uL (0-1.3); Monocytes % (auto) 6.7 % (0.0-12.0); Neutrophils # (auto) 7.4 10 ^3/uL (1.6-8.6); Neutrophils % (auto) 74.8 % (37.0-80.0); Red Blood Cells 3.77 10^6/uL (4.0-5.20); Red Cell Distribution Width 18.7 % (11.8-14.3); White Blood Cell 9.8 10^3/uL (4.4-10.8)
[2022-05-28 05:48] LABS: Albumin 1.9 g/dL (3.4-5.0); Calcium 7.4 mg/dL (8.5-10.1); Magnesium 2.2 mg/dL (1.6-2.6); Potassium 4.2 mmol/L (3.5-5.1)
[2022-05-28 05:53] LABS: Bilirubin, Total 0.3 mg/dL (0.2-1.0); Total Protein 5.5 g/dL (6.4-8.2)
[2022-05-28 08:30] VITALS: BP 100/70
[2022-05-28] MEDS: LINEZOLID 600MG/300ML 300 ML IV SCH ×2 (09:13→21:24)
[2022-05-28] MEDS: PANTOPRAZOLE 40 MG/10 ML VIAL INJ IV SCH ×2 (09:13→21:24)
[2022-05-28] MEDS: FUROSEMIDE 40 MG/4 ML VIAL IV SCH (09:37)
[2022-05-28] MEDS: SODIUM CHLOR 0.9% PF (SALINE LOCK) 10ML VIAL/SYR IV SCH ×2 (09:38→21:35)
[2022-05-28] MEDS: CARVEDILOL 3.125 MG TAB PO SCH ×2 (09:39→21:34)
[2022-05-28] MEDS: LISINOPRIL 5 MG TAB PO SCH (09:39)
[2022-05-28 13:00] VITALS: BP 106/57
[2022-05-28] MEDS: ACETAMINOPHEN 325 MG TAB PO PRN ×2 (14:07→21:58)
[2022-05-28 16:51] VITALS: BP 108/60
[2022-05-28] MEDS: ATORVASTATIN 20 MG TAB PO SCH (21:24)
[2022-05-28 22:00] VITALS: BP 105/61
[2022-05-29 05:26] LABS: Eosinophils # (auto) 0.4 10 ^3/uL (0-0.8); Lymphocytes # (auto) 1.4 10 ^3/uL (0.4-5.4); Mean Corpuscular Hgb Conc. 32.2 g/dL (32.0-36.0); Monocytes # (auto) 0.6 10 ^3/uL (0-1.3)
[2022-05-29 05:34] LABS: Basophils # (auto) 0.2 10 ^3/uL (0-0.2); Basophils % (auto) 2.5 % (0.0-2.0); Eosinophils % (auto) 4.6 % (0.0-7.0); Hematocrit 28.7 % (36.0-46.0); Hemoglobin 9.3 g/dL (12.2-16.2); Lymphocytes % (auto) 15.8 % (10.0-50.0); Mean Corpuscular Hemoglobin 25.7 pg (28.0-32.0); Mean Corpuscular Volume 79.7 fL (80.0-100.0); Monocytes % (auto) 6.3 % (0.0-12.0); Neutrophils # (auto) 6.5 10 ^3/uL (1.6-8.6); Neutrophils % (auto) 70.8 % (37.0-80.0); Red Cell Distribution Width 18.9 % (11.8-14.3); White Blood Cell 9.2 10^3/uL (4.4-10.8)
[2022-05-29] MEDS: metroNIDAZOLE 500MG/100ML 100 ML IV SCH ×2 (05:37→14:32)
[2022-05-29 05:42] LABS: Calcium 7.3 mg/dL (8.5-10.1); Potassium 4.1 mmol/L (3.5-5.1)
[2022-05-29 05:45] LABS: BUN/Creatinine Ratio 30.9; Bilirubin, Total 0.5 mg/dL (0.2-1.0); Total Protein 5.6 g/dL (6.4-8.2)
[2022-05-29 06:17] LABS: Urine Bacteria NONE SEEN /hpf (None Seen); Urine Blood Negative /uL (Negative); Urine Specific Gravity 1.015 (1.001-1.035); Urine WBC 3 /hpf (0 - 5)
[2022-05-29 09:00] VITALS: BP 109/64
[2022-05-29] MEDS ORDERED: DIPHENOXYLATE W/ATROPINE 2.5 MG TAB PO PRN (10:00)
[2022-05-29] MEDS: PANTOPRAZOLE 40 MG/10 ML VIAL INJ IV SCH (10:30)
[2022-05-29] MEDS: FUROSEMIDE 40 MG/4 ML VIAL IV SCH (10:30)
[2022-05-29] MEDS: SODIUM CHLOR 0.9% PF (SALINE LOCK) 10ML VIAL/SYR IV SCH (10:31)
[2022-05-29] MEDS: LINEZOLID 600MG/300ML 300 ML IV SCH (10:32)
[2022-05-29] MEDS: CARVEDILOL 3.125 MG TAB PO SCH (10:33)
[2022-05-29] MEDS: LISINOPRIL 5 MG TAB PO SCH (10:33)
[2022-05-29 12:49] VITALS: BP 94/53
[2022-05-29 13:30] VITALS: BP 108/60
[2022-05-29 17:00] VITALS: BP 105/52
== END 2022-05-29 18:34 | DRG 329 ==
LOC: EDBD 15:19 → ER 15:19 → OVERFLOW 21:26 → UNDOADMIN 21:26 → OVERFLOW 05-13 03:49 → WEST WING 05-13 03:49 → TELE 05-16 13:23 → TELE-WESTW 05-16 13:41 → ICU CENTRL 05-19 18:56 → DOU IN ICU 05-23 22:16 → TELE-WESTW 05-25 16:58
PROVIDERS: ADMIT Nurse Practitioner; ATTEND Internal Medicine Geriatric Medicine
PROC: 0DJ08ZZ Inspection of Upper Intestinal Tract, Via Natural or Artificial Opening Endoscopic (ICD-10-PCS; 2022-05-16)
PROC: 0DBN8ZX Excision of Sigmoid Colon, Via Natural or Artificial Opening Endoscopic, Diagnostic (ICD-10-PCS; 2022-05-19)
PROC: 5A1945Z Respiratory Ventilation, 24-96 Consecutive Hours (ICD-10-PCS; 2022-05-19)
PROC: 0BH17EZ Insertion of Endotracheal Airway into Trachea, Via Natural or Artificial Opening (ICD-10-PCS; 2022-05-19)
PROC: 0DTF0ZZ Resection of Right Large Intestine, Open Approach (ICD-10-PCS; principal; 2022-05-19 13:09)
PROC: 02HV33Z Insertion of Infusion Device into Superior Vena Cava, Percutaneous Approach (ICD-10-PCS; 2022-05-20)
PROC: B548ZZA Ultrasonography of Superior Vena Cava, Guidance (ICD-10-PCS; 2022-05-20)
PROC: 3E0436Z Introduction of Nutritional Substance into Central Vein, Percutaneous Approach (ICD-10-PCS; 2022-05-20)
PROC: 30233N1 Transfusion of Nonautologous Red Blood Cells into Peripheral Vein, Percutaneous Approach (ICD-10-PCS; 2022-05-23)
DX: K63.1 Perforation of intestine (nontraumatic) (principal); G93.41 Metabolic encephalopathy; K65.9 Peritonitis, unspecified; J96.01 Acute respiratory failure with hypoxia; E44.0 Moderate protein-calorie malnutrition; R18.8 Other ascites; N39.0 Urinary tract infection, site not specified; N17.9 Acute kidney failure, unspecified; E87.6 Hypokalemia; K29.70 Gastritis, unspecified, without bleeding; I10 Essential (primary) hypertension; E78.5 Hyperlipidemia, unspecified; Z20.822 Contact with and (suspected) exposure to COVID-19; I49.3 Ventricular premature depolarization; E11.649 Type 2 diabetes mellitus with hypoglycemia without coma; K52.9 Noninfective gastroenteritis and colitis, unspecified; M19.90 Unspecified osteoarthritis, unspecified site; L40.9 Psoriasis, unspecified; D64.9 Anemia, unspecified; G89.29 Other chronic pain; Z80.41 Family history of malignant neoplasm of ovary; Z82.49 Family history of ischemic heart disease and other diseases of the circulatory system; Z85.43 Personal history of malignant neoplasm of ovary; Z86.73 Personal history of transient ischemic attack (TIA), and cerebral infarction without residual deficits; Z68.20 Body mass index [BMI] 20.0-20.9, adult; Z79.84 Long term (current) use of oral hypoglycemic drugs
CPT/HCPCS: 36415; 36569; 36600; 70450; 71045; 71275; 73110; 74018; 74176; 74177; 80048; 80053; 81001; 82140; 82270; 82565; 82805; 82962; 83605; 83735; 84100; 84132; 84478; 84484; 85025; 85379; 85610; 85730; 86850; 86900; 86901; 86920; 87040; 87045; 87070; 87075; 87077; 87081; 87086; 87088; 87186; 87205; 87427; 87493; 93005; 93306; 94002; 94003; 96361; 96365; 96367; 97110; 97116; 97530; C9113; G0378; J0696; J1815; J2250; J2405; J2704; J3480; J3490; J7060; J7131

== ENCOUNTER 2022-07-28 13:53 | Inpatient (IN) | payer OTHER ==
[~2022-07-28] VITALS: Ht 160 cm; Wt 82.6 kg
[~2022-07-28 13:53] MED LIST changes: +CEPH500C PO; +METH4TAB7 PO
[2022-07-28] MEDS ORDERED: ACETAMINOPHEN 500 MG TAB PO ONE (16:15)
[2022-07-28] MEDS ORDERED: ONDANSETRON HCL 4 MG/2 ML VIAL IV ONE (16:30)
[2022-07-28] MEDS ORDERED: SODIUM CHLORIDE 0.9% 1,000 ML IVB ONE (16:30)
[2022-07-28] MEDS ORDERED: KETOROLAC TROMETH 30 MG/ML 1ML VIAL IV ONE (16:30)
[2022-07-28] MEDS ORDERED: METOCLOPRAMIDE HCL 5MG/ml INJ 2ml VIAL IV ONE (17:30)
[2022-07-28] MEDS ORDERED: MORPHINE SULFATE 4 MG/ML SYR/VIAL IV ONE (17:30)
[2022-07-28 17:31] LABS: Basophils # (auto) 0.2 10 ^3/uL (0-0.2); Eosinophils # (auto) 0.1 10 ^3/uL (0-0.8); Eosinophils % (auto) 0.4 % (0.0-7.0)
[2022-07-28 17:33] LABS: Hematocrit 41.4 % (36.0-46.0); Hemoglobin 12.6 g/dL (12.2-16.2); Lymphocytes # (auto) 1.5 10 ^3/uL (0.4-5.4); Lymphocytes % (auto) 9.1 % (10.0-50.0); Mean Corpuscular Hemoglobin 24.9 pg (28.0-32.0); Mean Corpuscular Hgb Conc. 30.4 g/dL (32.0-36.0); Mean Corpuscular Volume 81.6 fL (80.0-100.0); Monocytes # (auto) 0.5 10 ^3/uL (0-1.3); Monocytes % (auto) 2.9 % (0.0-12.0); Neutrophils # (auto) 13.9 10 ^3/uL (1.6-8.6); Neutrophils % (auto) 86.6 % (37.0-80.0); Red Blood Cells 5.07 10^6/uL (4.0-5.20)
[2022-07-28 17:38] LABS: Red Cell Distribution Width 20.9 % (11.8-14.3)
[2022-07-28 17:49] LABS: Albumin 3.1 g/dL (3.4-5.0); Potassium 3.9 mmol/L (3.5-5.1)
[2022-07-28 17:51] LABS: Lactic Acid w/Reflex 3.7 mmol/L (0.4-2.0)
[2022-07-28 18:46] LABS: Calcium 8.8 mg/dL (8.5-10.1)
[2022-07-28 18:48] LABS: Bilirubin, Total 0.5 mg/dL (0.2-1.0); Total Protein 7.1 g/dL (6.4-8.2)
[2022-07-28] MEDS ORDERED: IOHEXOL 300 MG/ML 100ML BOTTLE IJ ONE (19:11)
[2022-07-28] MEDS ORDERED: metroNIDAZOLE 500MG/100ML 100 ML IV ONE (19:15)
[2022-07-28] MEDS ORDERED: SODIUM CHLORIDE 0.9% 1,000 ML IV ONE ×5 (19:15→20:30)
[2022-07-28] MEDS ORDERED: CIPROFLOXACIN 400MG/200ML 200 ML IV ONE (19:15)
[2022-07-28] MEDS ORDERED: ONDANSETRON HCL 4 MG/2 ML VIAL IV PRN (20:30)
[2022-07-28] MEDS ORDERED: IODIXANOL 320MG/ML 100ML BTL IV ONE (21:52)
[2022-07-28] MEDS: NOREPINEPHRINE 8 MG/250ML KIT 250 ML IV SCH (22:17)
[2022-07-28 22:30] LABS: Urine Bacteria FEW /hpf (None Seen); Urine Blood 2+ /uL (Negative); Urine Hyaline Cast FEW /lpf (0 - 2); Urine Specific Gravity 1.016 (1.001-1.035); Urine WBC 255 /hpf (0 - 5); Urine WBC Clumps PRESENT /hpf (None Seen)
[2022-07-28] MEDS ORDERED: SODIUM CHLORIDE 0.9% 1,000 ML IV SCH (23:00)
[2022-07-28] MEDS ORDERED: LORazepam 2MG/ML-1ML VIAL IV PRN (23:00)
[2022-07-28] MEDS: ACCU-CHEK COMFORT CURVE STRIP VI SCH (23:57)
[2022-07-29] VITALS (17 sets, daily range): BP systolic 75–129; BP diastolic 36–92
[2022-07-29] MEDS: InsuLIN REG 1unit/0.01ml Soln (100units/ml) SC SCH ×5 (00:13→18:22)
[2022-07-29] MEDS ORDERED: ALBUMIN 25% 100 ML IV ONE (03:00)
[2022-07-29] MEDS ORDERED: VANCOMYCIN 1GM/250ML 250 ML IV ONE (04:15)
[2022-07-29] MEDS ORDERED: VANCOMYCIN PER PHARMACY 0 MG IV SCH (04:15)
[2022-07-29] MEDS ORDERED: SODIUM BICARBONATE 50ML VIAL 100 ML in SOD CHL 0.45% 1,000 ML IV ONE ×2 (04:15→16:15)
[2022-07-29] MEDS ORDERED: SODIUM BICARBONATE 8.4% INJ 50ML SYRINGE ONE ×2 (04:58→05:01)
[2022-07-29] MEDS: ACCU-CHEK COMFORT CURVE STRIP VI SCH ×4 (08:10→22:00)
[2022-07-29 09:26] LABS: Hematocrit 32.9 % (36.0-46.0); Hemoglobin 9.8 g/dL (12.2-16.2); Mean Corpuscular Hemoglobin 24.9 pg (28.0-32.0); Mean Corpuscular Hgb Conc. 29.9 g/dL (32.0-36.0); Mean Corpuscular Volume 83.3 fL (80.0-100.0); Red Blood Cells 3.95 10^6/uL (4.0-5.20); Red Cell Distribution Width 20.8 % (11.8-14.3); White Blood Cell 22.6 10^3/uL (4.4-10.8)
[2022-07-29 09:38] LABS: Calcium 7.9 mg/dL (8.5-10.1)
[2022-07-29 09:41] LABS: BUN/Creatinine Ratio 26.7; Bilirubin, Total 0.4 mg/dL (0.2-1.0); Total Protein 5.8 g/dL (6.4-8.2)
[2022-07-29 09:45] LABS: Basophils % (manual) 0 (0.0-2.0); Blast Cells 0; Eosinophils % (manual) 0 (0-7); Metamyelocytes % 0; Myelocytes % 0; Promyelocytes % 0; Reactive Lymphocytes 0
[2022-07-29] MEDS: cefTRIAXone 1GM/50ML D5W 50 ML IV SCH (10:13)
[2022-07-29 10:47] LABS: INR 1.27 (0.9-1.15); Partial Thromboplastin Time 26.2 sec (24.6-33.4)
[2022-07-29 10:50] LABS: Potassium 5.7 mmol/L (3.5-5.1)
[2022-07-29] MEDS ORDERED: SODIUM CHLORIDE 0.9% 1,000 ML IV ONE ×2 (11:30→15:30)
[2022-07-29 12:06] LABS: Band Neutrophils % (manual) 6; Lymphocytes % (manual) 15 (10.0-50.0); Monocytes % (manual) 7 (0-12)
[2022-07-29] MEDS ORDERED: SODIUM BICARB 50ML SYR 100 ML in SODIUM CHLORIDE 0.9% 1,000 ML IV SCH (16:00)
[2022-07-29] MEDS: SODIUM BICARB 50ML SYR 100 ML in SOD CHL 0.45% 1,000 ML IV SCH ×2 (16:30→23:35)
[2022-07-29] MEDS ORDERED: ETOMIDATE (2MG/ML) 20ML VIAL IV ONE ×2 (17:15→19:28)
[2022-07-29] MEDS ORDERED: SUCCINYLCHOLINE CHLORIDE 20 MG/ML 10ML VIAL IV ONE ×2 (17:15→19:28)
[2022-07-29] MEDS ORDERED: SODIUM BICARBONATE 8.4 % INJ 50ML VIAL IV ONE ×2 (17:45→17:47)
[2022-07-29 18:41] LABS: Albumin 1.5 g/dL (3.4-5.0); BUN/Creatinine Ratio 26.4; Calcium 6.3 mg/dL (8.5-10.1)
[2022-07-29 18:43] LABS: Bilirubin, Total 0.3 mg/dL (0.2-1.0); Total Protein 3.2 g/dL (6.4-8.2)
[2022-07-29] MEDS ORDERED: InsuLIN REG 1unit/0.01ml Soln (100units/ml) IV ONE (20:15)
[2022-07-29] MEDS ORDERED: DEXTROSE (50%) 50ML SYRG IV ONE (20:15)
[2022-07-29] MEDS ORDERED: CALCIUM GLUC 1,000mg/50ml-NS 50 ML IV ONE ×2 (20:15→20:25)
[2022-07-29] MEDS: MIDAZOLAM DRIP 50 mg/50mL 50 ML IV SCH ×2 (21:15→23:45)
[2022-07-29] MEDS ORDERED: MIDAZOLAM DRIP 50 mg/50mL 50 ML IV ONE (21:17)
[2022-07-29] MEDS ORDERED: PANTOPRAZOLE 40 MG/10 ML VIAL INJ IV ONE ×3 (22:45→23:55)
[2022-07-29] MEDS ORDERED: SODIUM CHLORIDE 0.9% 500 ML IV ONE (22:45)
[2022-07-29] MEDS: PANTOPRAZOLE 40mg/50ML NS AE 50 ML IV SCH (23:00)
[2022-07-29] MEDS: OCTREOTIDE ACETATE 500 MCG in SODIUM CHL 0.9% 99 ML IV SCH (23:00)
[2022-07-29] MEDS: NOREPINEPHRINE 8 MG/250ML KIT 250 ML IV SCH (23:25)
[2022-07-29 23:48] LABS: Basophils # (auto) 0 10 ^3/uL (0-0.2); Eosinophils # (auto) 0 10 ^3/uL (0-0.8); Eosinophils % (auto) 0.1 % (0.0-7.0)
[2022-07-29 23:57] LABS: Basophils % (auto) 0.1 % (0.0-2.0); Hematocrit 22.9 % (36.0-46.0); Lymphocytes # (auto) 1.1 10 ^3/uL (0.4-5.4); Lymphocytes % (auto) 6.9 % (10.0-50.0); Mean Corpuscular Hemoglobin 24.6 pg (28.0-32.0); Mean Corpuscular Hgb Conc. 29.2 g/dL (32.0-36.0); Monocytes # (auto) 1.1 10 ^3/uL (0-1.3); Monocytes % (auto) 6.9 % (0.0-12.0); Neutrophils # (auto) 13.7 10 ^3/uL (1.6-8.6); Red Blood Cells 2.73 10^6/uL (4.0-5.20)
[2022-07-30] VITALS (108 sets, daily range): BP systolic 36–163; BP diastolic 10–80
[2022-07-30] LABS: Red Cell Distribution Width 20.7 % (11.8-14.3)
[2022-07-30 00:01] LABS: Hemoglobin 6.7 g/dL (12.2-16.2)
[2022-07-30 00:06] LABS: Calcium 7.1 mg/dL (8.5-10.1); Potassium 5.4 mmol/L (3.5-5.1)
[2022-07-30] MEDS ORDERED: OCTREOTIDE ACETATE 100 MCG/ML VL ONE (00:16)
[2022-07-30] MEDS: DEXTROSE (50%) 50ML SYRG IV PRN ×4 (00:30→05:00)
[2022-07-30] MEDS: MIDAZOLAM DRIP 50 mg/50mL 50 ML IV SCH ×5 (03:00→23:32)
[2022-07-30 03:34] LABS: Hematocrit 19.3 % (36.0-46.0); Mean Corpuscular Hemoglobin 25.8 pg (28.0-32.0); Mean Corpuscular Hgb Conc. 31.2 g/dL (32.0-36.0); Mean Corpuscular Volume 82.5 fL (80.0-100.0); Red Blood Cells 2.33 10^6/uL (4.0-5.20); White Blood Cell 11.4 10^3/uL (4.4-10.8)
[2022-07-30 03:47] LABS: INR 1.83 (0.9-1.15); Partial Thromboplastin Time 38.2 sec (24.6-33.4)
[2022-07-30 03:51] LABS: Red Cell Distribution Width 20.8 % (11.8-14.3)
[2022-07-30 03:53] LABS: Basophils % (manual) 0 (0.0-2.0); Blast Cells 0; Eosinophils % (manual) 0 (0-7); Myelocytes % 0; Promyelocytes % 0; Reactive Lymphocytes 0
[2022-07-30 03:59] LABS: Albumin 2.3 g/dL (3.4-5.0); Calcium 6.9 mg/dL (8.5-10.1); Magnesium 1.9 mg/dL (1.6-2.6)
[2022-07-30 04:08] LABS: Bilirubin, Total 0.5 mg/dL (0.2-1.0); Total Protein 4.1 g/dL (6.4-8.2)
[2022-07-30 04:22] LABS: Potassium 5.9 mmol/L (3.5-5.1)
[2022-07-30] MEDS ORDERED: SODIUM BICARB 50ML SYR 100 ML in D5W/SOD CHL 0.45% 1,000 ML IV ONE (05:00)
[2022-07-30] MEDS ORDERED: DEXTROSE (50%) 50ML SYRG IV ONE ×2 (05:00→17:15)
[2022-07-30] MEDS ORDERED: CALCIUM GLUC 1,000mg/50ml-NS 50 ML IV ONE ×2 (05:00→17:15)
[2022-07-30] MEDS ORDERED: SODIUM BICARBONATE 8.4% INJ 50ML SYRINGE ONE ×2 (05:02→13:36)
[2022-07-30] MEDS ORDERED: PROPOFOL 100 ML IV ONE (05:03)
[2022-07-30] MEDS: ACCU-CHEK COMFORT CURVE STRIP VI SCH ×4 (07:00→22:14)
[2022-07-30 07:26] LABS: Band Neutrophils % (manual) 21; Lymphocytes % (manual) 20 (10.0-50.0); Metamyelocytes % 5; Monocytes % (manual) 4 (0-12)
[2022-07-30] MEDS ORDERED: FUROSEMIDE 20 MG/2 ML VIAL IV ONE (08:15)
[2022-07-30] MEDS: PANTOPRAZOLE 40mg/50ML NS AE 50 ML IV SCH ×4 (08:45→21:19)
[2022-07-30] MEDS: VASOPRESSIN 50 UNITS in D5W 5% 247.5 ML IV SCH (09:14)
[2022-07-30] MEDS: InsuLIN REG 1unit/0.01ml Soln (100units/ml) SC SCH ×4 (09:16→22:18)
[2022-07-30] MEDS: PHENYLEPHRINE IV 250 ML IV SCH ×2 (09:17→20:21)
[2022-07-30] MEDS: NOREPINEPHRINE 8 MG/250ML KIT 250 ML IV SCH ×2 (09:19→23:24)
[2022-07-30] MEDS: OCTREOTIDE ACETATE 500 MCG in SODIUM CHL 0.9% 99 ML IV SCH ×2 (09:20→20:08)
[2022-07-30] MEDS: cefTRIAXone 1GM/50ML D5W 50 ML IV SCH (09:47)
[2022-07-30] MEDS ORDERED: GASTROGRAFIN 120 ML SOL ONE (11:40)
[2022-07-30] MEDS ORDERED: VANCOMYCIN 1GM/250ML 250 ML IV SCH (12:00)
[2022-07-30] MEDS ORDERED: DAPTOmycin 350 MG in SODIUM CHL 0.9% 50 ML IV ONE (13:30)
[2022-07-30] MEDS ORDERED: SODIUM BICARBONATE 8.4 % INJ 50ML VIAL IV ONE (13:30)
[2022-07-30] MEDS ORDERED: DAPTOmycin 350 MG in SODIUM CHL 0.9% 50 ML IV SCH (13:30)
[2022-07-30] MEDS ORDERED: PIPERACILLIN-TAZOB 3.375GM 100 ML IV SCH (14:00)
[2022-07-30] MEDS ORDERED: SODIUM BICARB 50ML SYR 100 ML in D5W/SOD CHL 0.45% 1,000 ML IV SCH (15:00)
[2022-07-30 15:50] LABS: Basophils # (auto) 0 10 ^3/uL (0-0.2); Basophils % (auto) 0.5 % (0.0-2.0); Eosinophils # (auto) 0.1 10 ^3/uL (0-0.8); Eosinophils % (auto) 1.6 % (0.0-7.0); Hematocrit 31.6 % (36.0-46.0); Hemoglobin 10.1 g/dL (12.2-16.2); Lymphocytes # (auto) 0.5 10 ^3/uL (0.4-5.4); Lymphocytes % (auto) 7.6 % (10.0-50.0); Mean Corpuscular Hemoglobin 27.1 pg (28.0-32.0); Mean Corpuscular Hgb Conc. 31.9 g/dL (32.0-36.0); Mean Corpuscular Volume 85.1 fL (80.0-100.0); Monocytes # (auto) 0.3 10 ^3/uL (0-1.3); Monocytes % (auto) 4.7 % (0.0-12.0); Neutrophils # (auto) 6.1 10 ^3/uL (1.6-8.6); Neutrophils % (auto) 85.6 % (37.0-80.0); Nucleated Red Blood Cells % 0.8 %; Red Blood Cells 3.72 10^6/uL (4.0-5.20); Red Cell Distribution Width 17.4 % (11.8-14.3); White Blood Cell 7.1 10^3/uL (4.4-10.8)
[2022-07-30] MEDS: PROPOFOL 100 ML IV SCH (16:00)
[2022-07-30 16:12] LABS: INR 1.72 (0.9-1.15); Partial Thromboplastin Time 34.5 sec (24.6-33.4)
[2022-07-30 16:16] LABS: Albumin 2.3 g/dL (3.4-5.0); Calcium 6.4 mg/dL (8.5-10.1); Potassium 5.4 mmol/L (3.5-5.1)
[2022-07-30] MEDS: PIPERACILLIN-TAZOB 3.375GM 100 ML IV SCH ×2 (16:22→22:14)
[2022-07-30 16:33] LABS: BUN/Creatinine Ratio 21.2; Total Protein 4.9 g/dL (6.4-8.2)
[2022-07-30] MEDS ORDERED: InsuLIN REG 1unit/0.01ml Soln (100units/ml) IV ONE (17:15)
[2022-07-30] MEDS ORDERED: HEPARIN 1,000 UNITS/ml 1ML VIAL ONE (18:38)
[2022-07-30] MEDS: SODIUM BICARB 50ML SYR 100 ML in D5W/SOD CHL 0.45% 1,000 ML IV SCH (20:09)
[2022-07-30 21:19] LABS: GFR African American 19 mL/min; GFR Non-African American 16 mL/min
[2022-07-30 21:27] LABS: Alanine Aminotransferase 2581 U/L (13-56); Alkaline Phosphatase 58 U/L (45-117); Total Protein 4.9 g/dL (6.4-8.2)
[2022-07-30 21:48] LABS: Anion Gap 19 (5-15); Aspartate Aminotransferase 5518 U/L (15-37); Carbon Dioxide 18 mmol/L (21-32); Chloride 106 mmol/L (98-107); Glucose 222 mg/dL (74-106); Potassium 4.8 mmol/L (3.5-5.1); Sodium 143 mmol/L (136-145)
[2022-07-30 21:49] LABS: Albumin 2.3 g/dL (3.4-5.0); BUN/Creatinine Ratio 21.2; Blood Urea Nitrogen 66 mg/dL (7-18); Calcium 6.8 mg/dL (8.5-10.1)
[2022-07-31] VITALS (104 sets, daily range): BP systolic 73–128; BP diastolic 40–64
[2022-07-31 04:15] LABS: Basophils # (auto) 0.1 10 ^3/uL (0-0.2); Basophils % (auto) 0.7 % (0.0-2.0); Eosinophils # (auto) 0.2 10 ^3/uL (0-0.8); Eosinophils % (auto) 1.7 % (0.0-7.0); Hematocrit 30.5 % (36.0-46.0); Lymphocytes # (auto) 0.7 10 ^3/uL (0.4-5.4); Mean Corpuscular Hemoglobin 27.1 pg (28.0-32.0); Mean Corpuscular Hgb Conc. 32.7 g/dL (32.0-36.0); Mean Corpuscular Volume 82.9 fL (80.0-100.0); Monocytes # (auto) 0.5 10 ^3/uL (0-1.3); Monocytes % (auto) 4.7 % (0.0-12.0); Neutrophils # (auto) 9.5 10 ^3/uL (1.6-8.6); Neutrophils % (auto) 86.9 % (37.0-80.0); Nucleated Red Blood Cells % 0.7 %; Red Blood Cells 3.68 10^6/uL (4.0-5.20); Red Cell Distribution Width 18.7 % (11.8-14.3); White Blood Cell 10.9 10^3/uL (4.4-10.8)
[2022-07-31] MEDS: PANTOPRAZOLE 40mg/50ML NS AE 50 ML IV SCH ×2 (04:29→05:41)
[2022-07-31] MEDS: PROPOFOL 100 ML IV SCH (04:30)
[2022-07-31] MEDS: SODIUM BICARB 50ML SYR 100 ML in D5W/SOD CHL 0.45% 1,000 ML IV SCH ×2 (04:30→10:14)
[2022-07-31 04:32] LABS: INR 1.92 (0.9-1.15)
[2022-07-31 04:33] LABS: Calcium 6.5 mg/dL (8.5-10.1); Magnesium 1.9 mg/dL (1.6-2.6); Potassium 5.3 mmol/L (3.5-5.1)
[2022-07-31 04:50] LABS: BUN/Creatinine Ratio 19.8; Total Protein 4.4 g/dL (6.4-8.2)
[2022-07-31] MEDS: MIDAZOLAM DRIP 50 mg/50mL 50 ML IV SCH ×3 (05:42→13:32)
[2022-07-31] MEDS: PIPERACILLIN-TAZOB 3.375GM 100 ML IV SCH ×3 (05:47→22:01)
[2022-07-31] MEDS: OCTREOTIDE ACETATE 500 MCG in SODIUM CHL 0.9% 99 ML IV SCH ×3 (05:48→22:00)
[2022-07-31] MEDS: ACCU-CHEK COMFORT CURVE STRIP VI SCH ×4 (06:10→22:20)
[2022-07-31] MEDS: InsuLIN REG 1unit/0.01ml Soln (100units/ml) SC SCH ×4 (06:11→22:00)
[2022-07-31] MEDS ORDERED: SODIUM CHL 0.9% 1000 ML BAG XX ONE (07:00)
[2022-07-31] MEDS: NOREPINEPHRINE 8 MG/250ML KIT 250 ML IV SCH (07:56)
[2022-07-31] MEDS: PHENYLEPHRINE IV 250 ML IV SCH ×3 (11:56→17:49)
[2022-07-31] MEDS ORDERED: DAPTOmycin 350 MG in SODIUM CHL 0.9% 50 ML IV SCH (12:00)
[2022-07-31] MEDS ORDERED: AMIODARONE HCL 150 MG in D5W 5% 100 ML IV ONE (15:30)
[2022-07-31] MEDS ORDERED: AMIODARONE 450mg/250ml AE 250 ML IV SCH (15:45)
[2022-07-31] MEDS ORDERED: SODIUM CHLORIDE 0.9% 1,000 ML IV SCH (18:00)
[2022-07-31] MEDS ORDERED: DIGOXIN (250MCG/ML) 2 ML AMPULE ONE (18:25)
[2022-07-31] MEDS ORDERED: DIGOXIN (250MCG/ML) 2 ML AMPULE IV ONE ×2 (18:30→22:00)
[2022-07-31] MEDS: PHENYLEPHRINE INJ 80 MG in SODIUM CHL 0.9% 242 ML IV SCH (19:42)
[2022-07-31] MEDS: AMIODARONE 450mg/250ml AE 250 ML IV SCH (21:59)
[2022-07-31] MEDS: PANTOPRAZOLE 40 MG/10 ML VIAL INJ IV SCH (22:01)
[2022-07-31] MEDS: DEXTROSE (50%) 50ML SYRG IV PRN (23:18)
[2022-08-01] VITALS (74 sets, daily range): BP systolic 89–170; BP diastolic 32–83
[2022-08-01 00:44] LABS: Basophils # (auto) 0 10 ^3/uL (0-0.2); Basophils % (auto) 0.2 % (0.0-2.0); Eosinophils # (auto) 0.1 10 ^3/uL (0-0.8); Eosinophils % (auto) 0.4 % (0.0-7.0); Hematocrit 28.9 % (36.0-46.0); Lymphocytes # (auto) 1.1 10 ^3/uL (0.4-5.4); Lymphocytes % (auto) 4.5 % (10.0-50.0); Mean Corpuscular Hgb Conc. 31.1 g/dL (32.0-36.0); Mean Corpuscular Volume 86.8 fL (80.0-100.0); Monocytes # (auto) 0.7 10 ^3/uL (0-1.3); Neutrophils # (auto) 22.2 10 ^3/uL (1.6-8.6); Neutrophils % (auto) 91.9 % (37.0-80.0); Nucleated Red Blood Cells % 0.4 %; Red Blood Cells 3.33 10^6/uL (4.0-5.20); White Blood Cell 24.2 10^3/uL (4.4-10.8)
[2022-08-01 01:02] LABS: Albumin 1.7 g/dL (3.4-5.0); BUN/Creatinine Ratio 18.6; Calcium 6.4 mg/dL (8.5-10.1); Magnesium 1.7 mg/dL (1.6-2.6)
[2022-08-01 01:08] LABS: Potassium 5.7 mmol/L (3.5-5.1)
[2022-08-01 01:10] LABS: Bilirubin, Total 1.5 mg/dL (0.2-1.0); Total Protein 4.1 g/dL (6.4-8.2)
[2022-08-01] MEDS ORDERED: SODIUM BICARBONATE 8.4 % INJ 50ML VIAL IV ONE ×3 (02:26→21:45)
[2022-08-01] MEDS ORDERED: SODIUM BICARBONATE 50ML VIAL 50 ML in SODIUM CHL 0.9% 1,000 ML IV SCH (02:45)
[2022-08-01] MEDS: PHENYLEPHRINE INJ 80 MG in SODIUM CHL 0.9% 242 ML IV SCH (03:26)
[2022-08-01] MEDS: NOREPINEPHRINE 8 MG/250ML KIT 250 ML IV SCH ×2 (03:27→09:17)
[2022-08-01] MEDS: DEXTROSE (50%) 50ML SYRG IV PRN ×2 (05:22→11:40)
[2022-08-01] MEDS: ACCU-CHEK COMFORT CURVE STRIP VI SCH ×10 (05:23→23:39)
[2022-08-01] MEDS: InsuLIN REG 1unit/0.01ml Soln (100units/ml) SC SCH ×3 (05:24→20:00)
[2022-08-01] MEDS: PIPERACILLIN-TAZOB 3.375GM 100 ML IV SCH ×3 (06:00→22:12)
[2022-08-01] MEDS: PROPOFOL 100 ML IV SCH (07:00)
[2022-08-01 08:17] LABS: Hemoglobin 10.1 g/dL (12.2-16.2)
[2022-08-01 08:18] LABS: Hematocrit 32.3 % (36.0-46.0); Mean Corpuscular Hemoglobin 26.6 pg (28.0-32.0); Mean Corpuscular Hgb Conc. 31.4 g/dL (32.0-36.0); Mean Corpuscular Volume 84.9 fL (80.0-100.0); Red Blood Cells 3.81 10^6/uL (4.0-5.20); Red Cell Distribution Width 18.7 % (11.8-14.3); White Blood Cell 22.3 10^3/uL (4.4-10.8)
[2022-08-01 08:20] LABS: Basophils % (manual) 0 (0.0-2.0); Blast Cells 0; Eosinophils % (manual) 0 (0-7); Myelocytes % 0; Promyelocytes % 0; Reactive Lymphocytes 0
[2022-08-01 08:34] LABS: Magnesium 1.9 mg/dL (1.6-2.6); Potassium 3.5 mmol/L (3.5-5.1)
[2022-08-01 08:40] LABS: Band Neutrophils % (manual) 13; Lymphocytes % (manual) 7 (10.0-50.0); Metamyelocytes % 1; Monocytes % (manual) 2 (0-12)
[2022-08-01 08:52] LABS: BUN/Creatinine Ratio 15.5; Bilirubin, Total 2.2 mg/dL (0.2-1.0); Total Protein 4.8 g/dL (6.4-8.2)
[2022-08-01] MEDS: PANTOPRAZOLE 40 MG/10 ML VIAL INJ IV SCH ×2 (09:11→22:12)
[2022-08-01 09:47] LABS: Lactic Acid w/Reflex 13.5 mmol/L (0.4-2.0)
[2022-08-01] MEDS: VASOPRESSIN 50 UNITS in D5W 5% 247.5 ML IV SCH ×2 (11:01→22:12)
[2022-08-01] MEDS: OCTREOTIDE ACETATE 500 MCG in SODIUM CHL 0.9% 99 ML IV SCH ×2 (11:07→21:18)
[2022-08-01] MEDS ORDERED: D5W/SOD CHLO 0.9% 1,000 ML IV SCH (12:00)
[2022-08-01] MEDS: AMIODARONE 450mg/250ml AE 250 ML IV SCH (12:45)
[2022-08-01] MEDS: DAPTOmycin 350 MG in SODIUM CHL 0.9% 50 ML IV SCH (13:43)
[2022-08-01 15:51] LABS: Mean Corpuscular Hemoglobin 26.6 pg (28.0-32.0)
[2022-08-01 15:53] LABS: Hemoglobin 7.3 g/dL (12.2-16.2); Mean Corpuscular Hgb Conc. 29.2 g/dL (32.0-36.0); Mean Corpuscular Volume 90.9 fL (80.0-100.0); Red Blood Cells 2.75 10^6/uL (4.0-5.20); White Blood Cell 22.2 10^3/uL (4.4-10.8)
[2022-08-01 15:54] LABS: Albumin 1.3 g/dL (3.4-5.0); Calcium 6.5 mg/dL (8.5-10.1); Potassium 5.5 mmol/L (3.5-5.1)
[2022-08-01 15:57] LABS: Red Cell Distribution Width 20.2 % (11.8-14.3)
[2022-08-01 15:59] LABS: Basophils % (manual) 0 (0.0-2.0); Blast Cells 0; Eosinophils % (manual) 0 (0-7); Promyelocytes % 0; Reactive Lymphocytes 0
[2022-08-01 16:07] LABS: INR 2.49 (0.9-1.15)
[2022-08-01 16:11] LABS: BUN/Creatinine Ratio 14.8; Bilirubin, Total 1.7 mg/dL (0.2-1.0); Total Protein 3.3 g/dL (6.4-8.2)
[2022-08-01 16:44] LABS: Band Neutrophils % (manual) 29; Lymphocytes % (manual) 8 (10.0-50.0); Metamyelocytes % 3; Monocytes % (manual) 1 (0-12); Myelocytes % 5
[2022-08-01] MEDS ORDERED: DEXTROSE (50%) 50ML SYRG IV PRN (18:15)
[2022-08-01] MEDS ORDERED: ATROPINE SULFATE 1 MG/1 ML VIAL ONE (19:55)
[2022-08-01] MEDS ORDERED: SODIUM BICARBONATE 8.4% INJ 50ML SYRINGE ONE ×2 (20:29→21:42)
[2022-08-01 20:55] LABS: Hemoglobin 8.1 g/dL (12.2-16.2); Mean Corpuscular Hemoglobin 26.5 pg (28.0-32.0); Red Blood Cells 3.04 10^6/uL (4.0-5.20)
[2022-08-01 20:56] LABS: Hematocrit 28.3 % (36.0-46.0); Mean Corpuscular Hgb Conc. 28.5 g/dL (32.0-36.0); Mean Corpuscular Volume 92.9 fL (80.0-100.0); White Blood Cell 26.3 10^3/uL (4.4-10.8)
[2022-08-01 21:01] LABS: Metamyelocytes % 0; Myelocytes % 0; Promyelocytes % 0; Reactive Lymphocytes 0; Red Cell Distribution Width 20.1 % (11.8-14.3)
[2022-08-01 21:02] LABS: Blast Cells 0
[2022-08-01 21:06] LABS: BUN/Creatinine Ratio 15.3; Calcium 6.6 mg/dL (8.5-10.1); Magnesium 1.9 mg/dL (1.6-2.6); Potassium 5.5 mmol/L (3.5-5.1)
[2022-08-01] MEDS: MIDAZOLAM DRIP 50 mg/50mL 50 ML IV SCH (21:15)
[2022-08-01] MEDS: SODIUM BICARBONATE 50ML VIAL 150 ML in D5W 5% 1,000 ML IV SCH (21:55)
[2022-08-01 21:59] LABS: Band Neutrophils % (manual) 17; Basophils % (manual) 3 (0.0-2.0); Eosinophils % (manual) 1 (0-7); Lymphocytes % (manual) 7 (10.0-50.0); Monocytes % (manual) 12 (0-12)
[2022-08-01] MEDS: DOPamine 1600MCG/ML D5W 250 ML IV SCH (22:15)
[2022-08-02] VITALS (111 sets, daily range): BP systolic 78–168; BP diastolic 25–87
[2022-08-02] MEDS: ACCU-CHEK COMFORT CURVE STRIP VI SCH ×14 (00:19→20:00)
[2022-08-02] MEDS: PHENYLEPHRINE INJ 80 MG in SODIUM CHL 0.9% 242 ML IV SCH ×2 (00:20→13:23)
[2022-08-02] MEDS: NOREPINEPHRINE 8 MG/250ML KIT 250 ML IV SCH ×4 (01:48→19:18)
[2022-08-02] MEDS ORDERED: EPINEPHrine HCL 250 ML IV ONE (02:24)
[2022-08-02] MEDS: AMIODARONE 450mg/250ml AE 250 ML IV SCH ×2 (03:29→18:45)
[2022-08-02 03:36] LABS: Basophils # (auto) 0.1 10 ^3/uL (0-0.2); Hematocrit 28.2 % (36.0-46.0); Monocytes # (auto) 0.1 10 ^3/uL (0-1.3)
[2022-08-02 03:38] LABS: Basophils % (auto) 0.3 % (0.0-2.0); Eosinophils # (auto) 1.2 10 ^3/uL (0-0.8); Eosinophils % (auto) 4.1 % (0.0-7.0); Hemoglobin 8.3 g/dL (12.2-16.2); Lymphocytes # (auto) 2.9 10 ^3/uL (0.4-5.4); Mean Corpuscular Hemoglobin 26.7 pg (28.0-32.0); Mean Corpuscular Hgb Conc. 29.3 g/dL (32.0-36.0); Mean Corpuscular Volume 91.2 fL (80.0-100.0); Monocytes % (auto) 0.4 % (0.0-12.0); Neutrophils # (auto) 24.7 10 ^3/uL (1.6-8.6); Neutrophils % (auto) 85.2 % (37.0-80.0); Nucleated Red Blood Cells % 2.1 %; Red Blood Cells 3.09 10^6/uL (4.0-5.20)
[2022-08-02 03:49] LABS: BUN/Creatinine Ratio 14.6; Calcium 6.7 mg/dL (8.5-10.1)
[2022-08-02 03:54] LABS: Potassium 5.7 mmol/L (3.5-5.1)
[2022-08-02 03:55] LABS: Red Cell Distribution Width 20.7 % (11.8-14.3)
[2022-08-02] MEDS: InsuLIN REG 1unit/0.01ml Soln (100units/ml) SC SCH ×6 (04:00→20:00)
[2022-08-02] MEDS ORDERED: InsuLIN REG 1unit/0.01ml Soln (100units/ml) IV ONE ×2 (04:15→13:15)
[2022-08-02] MEDS ORDERED: CALCIUM GLUC 1,000mg/50ml-NS 50 ML IV ONE ×2 (04:15→13:15)
[2022-08-02] MEDS ORDERED: DEXTROSE (50%) 50ML SYRG IV ONE ×2 (04:15→13:15)
[2022-08-02] MEDS: DOPamine 1600MCG/ML D5W 250 ML IV SCH ×4 (04:37→18:09)
[2022-08-02] MEDS ORDERED: SODIUM BICARBONATE 8.4 % INJ 50ML VIAL IV ONE ×4 (05:00→15:45)
[2022-08-02] MEDS: PIPERACILLIN-TAZOB 3.375GM 100 ML IV SCH ×2 (05:30→14:24)
[2022-08-02] MEDS: OCTREOTIDE ACETATE 500 MCG in SODIUM CHL 0.9% 99 ML IV SCH ×2 (06:25→14:47)
[2022-08-02] MEDS: PROPOFOL 100 ML IV SCH (06:25)
[2022-08-02 07:02] LABS: INR 2.72 (0.9-1.15); Partial Thromboplastin Time 64.7 sec (24.6-33.4)
[2022-08-02] MEDS: SODIUM BICARBONATE 50ML VIAL 150 ML in D5W 5% 1,000 ML IV SCH ×2 (07:33→18:18)
[2022-08-02] MEDS: PANTOPRAZOLE 40 MG/10 ML VIAL INJ IV SCH ×2 (09:42→22:00)
[2022-08-02] MEDS ORDERED: ATROPINE SULFATE 1 MG/1 ML VIAL ONE (12:20)
[2022-08-02 16:22] LABS: Mean Corpuscular Volume 91.7 fL (80.0-100.0)
[2022-08-02 16:24] LABS: Mean Corpuscular Hemoglobin 26.6 pg (28.0-32.0); Mean Corpuscular Hgb Conc. 29.1 g/dL (32.0-36.0); Red Blood Cells 2.29 10^6/uL (4.0-5.20); White Blood Cell 19.2 10^3/uL (4.4-10.8)
[2022-08-02 16:30] LABS: Red Cell Distribution Width 20.4 % (11.8-14.3)
[2022-08-02 16:32] LABS: Basophils % (manual) 0 (0.0-2.0); Blast Cells 0; Hemoglobin 6.1 g/dL (12.2-16.2); Promyelocytes % 0; Reactive Lymphocytes 0
[2022-08-02 16:45] LABS: BUN/Creatinine Ratio 12.7; Calcium 6.8 mg/dL (8.5-10.1)
[2022-08-02] MEDS ORDERED: SODIUM CHL 0.9% 1000 ML BAG XX ONE (16:45)
[2022-08-02 16:48] LABS: Potassium 5.6 mmol/L (3.5-5.1)
[2022-08-02 17:09] LABS: Lactic Acid w/Reflex 34.6 mmol/L (0.4-2.0)
[2022-08-02 17:27] LABS: Band Neutrophils % (manual) 12; Eosinophils % (manual) 1 (0-7); Lymphocytes % (manual) 12 (10.0-50.0); Metamyelocytes % 1; Monocytes % (manual) 4 (0-12); Myelocytes % 1
[2022-08-02] MEDS: EPINEPHrine HCL 250 ML IV SCH (19:27)
[2022-08-02] MEDS: MIDAZOLAM DRIP 50 mg/50mL 50 ML IV SCH (21:15)
[2022-08-02] MEDS: CEFEPIME 1GM/ 50ML 50 ML IV SCH (22:00)
[2022-08-02] MEDS: VASOPRESSIN 50 UNITS in D5W 5% 247.5 ML IV SCH (22:45)
[2022-08-03] VITALS (72 sets, daily range): BP systolic 83–139; BP diastolic 11–59
[2022-08-03 00:35] LABS: Red Cell Distribution Width 18.2 % (11.8-14.3)
[2022-08-03 00:36] LABS: Hemoglobin 9.7 g/dL (12.2-16.2); Mean Corpuscular Hemoglobin 28.2 pg (28.0-32.0); Mean Corpuscular Hgb Conc. 30.2 g/dL (32.0-36.0); Mean Corpuscular Volume 93.6 fL (80.0-100.0); Red Blood Cells 3.42 10^6/uL (4.0-5.20)
[2022-08-03 00:44] LABS: BUN/Creatinine Ratio 11.5; Calcium 6.5 mg/dL (8.5-10.1); Magnesium 1.8 mg/dL (1.6-2.6)
[2022-08-03 00:47] LABS: White Blood Cell 34.1 10^3/uL (4.4-10.8)
[2022-08-03 00:48] LABS: Basophils % (manual) 0 (0.0-2.0); Blast Cells 0; Eosinophils % (manual) 0 (0-7); Promyelocytes % 0; Reactive Lymphocytes 0
[2022-08-03 01:00] LABS: Lactic Acid w/Reflex 30.8 mmol/L (0.4-2.0)
[2022-08-03 01:06] LABS: Potassium 5.6 mmol/L (3.5-5.1)
[2022-08-03 01:53] LABS: Metamyelocytes % 3; Myelocytes % 5
[2022-08-03 01:54] LABS: Band Neutrophils % (manual) 18; Lymphocytes % (manual) 10 (10.0-50.0); Monocytes % (manual) 4 (0-12)
[2022-08-03] MEDS: OCTREOTIDE ACETATE 500 MCG in SODIUM CHL 0.9% 99 ML IV SCH ×2 (02:45→12:59)
[2022-08-03] MEDS ORDERED: SODIUM BICARBONATE 8.4 % INJ 50ML VIAL IV ONE ×3 (02:45→13:00)
[2022-08-03] MEDS ORDERED: SODIUM BICARBONATE 8.4% INJ 50ML SYRINGE ONE ×2 (03:08→04:06)
[2022-08-03] MEDS: EPINEPHrine HCL 250 ML IV SCH (04:15)
[2022-08-03] MEDS: SODIUM BICARBONATE 50ML VIAL 150 ML in D5W 5% 1,000 ML IV SCH (05:30)
[2022-08-03] MEDS: ACCU-CHEK COMFORT CURVE STRIP VI SCH ×6 (06:09→22:00)
[2022-08-03] MEDS: PROPOFOL 100 ML IV SCH (06:30)
[2022-08-03 06:53] LABS: Mean Corpuscular Volume 90.7 fL (80.0-100.0)
[2022-08-03 06:54] LABS: Hematocrit 30.8 % (36.0-46.0); Hemoglobin 9.4 g/dL (12.2-16.2); Mean Corpuscular Hemoglobin 27.7 pg (28.0-32.0); Mean Corpuscular Hgb Conc. 30.6 g/dL (32.0-36.0); Red Blood Cells 3.39 10^6/uL (4.0-5.20)
[2022-08-03 07:06] LABS: White Blood Cell 31.7 10^3/uL (4.4-10.8)
[2022-08-03 07:07] LABS: Basophils % (manual) 0 (0.0-2.0); Blast Cells 0; Eosinophils % (manual) 0 (0-7); Metamyelocytes % 0; Promyelocytes % 0; Reactive Lymphocytes 0
[2022-08-03 07:41] LABS: Anion Gap 38 (5-15); Carbon Dioxide 10 mmol/L (21-32); Chloride 99 mmol/L (98-107); Glucose 167 mg/dL (74-106); Potassium 5.4 mmol/L (3.5-5.1); Sodium 147 mmol/L (136-145)
[2022-08-03 07:42] LABS: BUN/Creatinine Ratio 11.2; Blood Urea Nitrogen 35 mg/dL (7-18); Calcium 6.4 mg/dL (8.5-10.1); GFR African American 19 mL/min; GFR Non-African American 16 mL/min; Magnesium 1.6 mg/dL (1.6-2.6)
[2022-08-03 07:43] LABS: Band Neutrophils % (manual) 1; Lymphocytes % (manual) 22 (10.0-50.0); Monocytes % (manual) 7 (0-12); Myelocytes % 2
[2022-08-03] MEDS: InsuLIN REG 1unit/0.01ml Soln (100units/ml) SC SCH ×5 (08:00→22:00)
[2022-08-03] MEDS: PANTOPRAZOLE 40 MG/10 ML VIAL INJ IV SCH ×2 (09:44→22:58)
[2022-08-03] MEDS: AMIODARONE 450mg/250ml AE 250 ML IV SCH (09:45)
[2022-08-03] MEDS ORDERED: SODIUM BICARB 50ML SYR 100 ML in D5W 5% 1,000 ML IV SCH (10:30)
[2022-08-03] MEDS ORDERED: BUMETANIDE INJECTION 12.5 MG in GIVE UN-DILUTED 0 ML IV SCH (10:30)
[2022-08-03] MEDS ORDERED: SODIUM CHL 0.9% 1000 ML BAG XX ONE (10:45)
[2022-08-03] MEDS ORDERED: SODIUM BICARBONATE 50ML VIAL 100 ML in D5W 5% 1,000 ML IV SCH (11:15)
[2022-08-03 11:26] LABS: Hemoglobin 9.2 g/dL (12.2-16.2)
[2022-08-03 11:28] LABS: Hematocrit 30.5 % (36.0-46.0); Mean Corpuscular Hemoglobin 27.6 pg (28.0-32.0); Mean Corpuscular Hgb Conc. 30.1 g/dL (32.0-36.0); Mean Corpuscular Volume 91.6 fL (80.0-100.0); Red Blood Cells 3.33 10^6/uL (4.0-5.20); Red Cell Distribution Width 17.8 % (11.8-14.3)
[2022-08-03] MEDS ORDERED: ALBUMIN 25% 100 ML IV ONE (11:30)
[2022-08-03 11:57] LABS: INR 3.77 (0.9-1.15)
[2022-08-03] MEDS: DAPTOmycin 350 MG in SODIUM CHL 0.9% 50 ML IV SCH (12:00)
[2022-08-03 12:12] LABS: Partial Thromboplastin Time 96.9 sec (24.6-33.4)
[2022-08-03 12:27] LABS: Basophils % (manual) 0 (0.0-2.0); Blast Cells 0; Eosinophils % (manual) 0 (0-7); Metamyelocytes % 0; Myelocytes % 0; Promyelocytes % 0; Reactive Lymphocytes 0
[2022-08-03 12:35] LABS: Lactic Acid w/Reflex 32.7 mmol/L (0.4-2.0)
[2022-08-03] MEDS ORDERED: SODIUM BICARBONATE 50ML VIAL 150 ML in D5W 5% 1,000 ML IV SCH (13:15)
[2022-08-03] MEDS ORDERED: D5W IV ONE (14:56)
[2022-08-03] MEDS ORDERED: DOPAMINE IV ONE (14:56)
[2022-08-03 15:17] LABS: Band Neutrophils % (manual) 6; Lymphocytes % (manual) 11 (10.0-50.0); Monocytes % (manual) 8 (0-12)
[2022-08-03] MEDS ORDERED: PHENYLEPHRINE HCL 10 MG/ML VL ONE (16:30)
[2022-08-03] MEDS ORDERED: PHENYLEPHRINE IV 250 ML IV ONE (16:30)
[2022-08-03] MEDS ORDERED: EPOETIN ALFA-EPBX 10,000 UNIT/1ML VIAL SC ONE (21:00)
[2022-08-03] MEDS ORDERED: DEXTROSE 50% SYRINGE 50 ML IV ONE (21:57)
[2022-08-03] MEDS ORDERED: ATROPINE SULFATE 1 MG/1 ML VIAL ONE (22:26)
[2022-08-03] MEDS: CEFEPIME 1GM/ 50ML 50 ML IV SCH (23:01)
[2022-08-03] MEDS ORDERED: OCTREOTIDE ACETATE 100 MCG/ML VL ONE ×2 (23:31→23:33)
[2022-08-04 00:30] VITALS: BP 66/14
[2022-08-04 01:15] VITALS: BP 86/22
[2022-08-04 01:45] VITALS: BP 60/24
[2022-08-04] MEDS ORDERED: ATROPINE SULF 1 MG/10ml SYR IM ONE ×2 (01:56)
[2022-08-04] MEDS ORDERED: CALCIUM CHLOR(10%) 100MG/ML 10ML SYRINGE IV ONE (01:56)
[2022-08-04] MEDS ORDERED: SODIUM BICARBONATE 8.4% INJ 50ML SYRINGE IV ONE ×2 (01:56)
[2022-08-04] MEDS ORDERED: EPINEPHrine HCL 1 MG/10 ML SYRG IV ONE (01:56)
[2022-08-04 13:36] LABS: Hepatitis C Antibody Negative (Negative)
== END 2022-08-04 01:57 | DRG 870 ==
LOC: ER 13:53 → TELE 20:36 → ICU WEST 07-29 18:17
PROVIDERS: ADMIT Nurse Practitioner Family; ATTEND Internal Medicine Geriatric Medicine
PROC: 02HV33Z Insertion of Infusion Device into Superior Vena Cava, Percutaneous Approach (ICD-10-PCS; 2022-07-29)
PROC: B548ZZA Ultrasonography of Superior Vena Cava, Guidance (ICD-10-PCS; 2022-07-29)
PROC: 5A1955Z Respiratory Ventilation, Greater than 96 Consecutive Hours (ICD-10-PCS; principal; 2022-07-30)
PROC: 0BH17EZ Insertion of Endotracheal Airway into Trachea, Via Natural or Artificial Opening (ICD-10-PCS; 2022-07-30)
PROC: 30233N1 Transfusion of Nonautologous Red Blood Cells into Peripheral Vein, Percutaneous Approach (ICD-10-PCS; 2022-07-30)
PROC: 02HV33Z Insertion of Infusion Device into Superior Vena Cava, Percutaneous Approach (ICD-10-PCS; 2022-07-30)
PROC: B548ZZA Ultrasonography of Superior Vena Cava, Guidance (ICD-10-PCS; 2022-07-30)
PROC: 5A1D70Z Performance of Urinary Filtration, Intermittent, Less than 6 Hours Per Day (ICD-10-PCS; 2022-08-01)
PROC: 5A1D70Z Performance of Urinary Filtration, Intermittent, Less than 6 Hours Per Day (ICD-10-PCS; 2022-08-02)
PROC: 5A1D70Z Performance of Urinary Filtration, Intermittent, Less than 6 Hours Per Day (ICD-10-PCS; 2022-08-02)
PROC: 30233K1 Transfusion of Nonautologous Frozen Plasma into Peripheral Vein, Percutaneous Approach (ICD-10-PCS; 2022-08-02)
PROC: 5A12012 Performance of Cardiac Output, Single, Manual (ICD-10-PCS; 2022-08-04)
DX: A41.9 Sepsis, unspecified organism (principal); G93.41 Metabolic encephalopathy; R65.21 Severe sepsis with septic shock; J96.01 Acute respiratory failure with hypoxia; N18.6 End stage renal disease; G93.5 Compression of brain; U07.1 COVID-19; K72.00 Acute and subacute hepatic failure without coma; R18.8 Other ascites; K56.609 Unspecified intestinal obstruction, unspecified as to partial versus complete obstruction; I12.0 Hypertensive chronic kidney disease with stage 5 chronic kidney disease or end stage renal disease; D68.9 Coagulation defect, unspecified; G93.1 Anoxic brain damage, not elsewhere classified; A09 Infectious gastroenteritis and colitis, unspecified; E11.52 Type 2 diabetes mellitus with diabetic peripheral angiopathy with gangrene; E44.0 Moderate protein-calorie malnutrition; J98.11 Atelectasis; N13.6 Pyonephrosis; N17.9 Acute kidney failure, unspecified; Z66 Do not resuscitate; Z99.2 Dependence on renal dialysis; E11.22 Type 2 diabetes mellitus with diabetic chronic kidney disease; E11.649 Type 2 diabetes mellitus with hypoglycemia without coma; D69.6 Thrombocytopenia, unspecified; E78.5 Hyperlipidemia, unspecified; E87.5 Hyperkalemia; E87.6 Hypokalemia; F03.90 Unspecified dementia, unspecified severity, without behavioral disturbance, psychotic disturbance, mood disturbance, and anxiety; H57.04 Mydriasis; I48.91 Unspecified atrial fibrillation; D64.9 Anemia, unspecified; M19.90 Unspecified osteoarthritis, unspecified site; Z63.72 Alcoholism and drug addiction in family; Z79.82 Long term (current) use of aspirin; Z79.899 Other long term (current) drug therapy; Z80.41 Family history of malignant neoplasm of ovary; Z81.1 Family history of alcohol abuse and dependence; Z82.49 Family history of ischemic heart disease and other diseases of the circulatory system; Z87.01 Personal history of pneumonia (recurrent); Z90.49 Acquired absence of other specified parts of digestive tract; Z93.6 Other artificial openings of urinary tract status; Z68.23 Body mass index [BMI] 23.0-23.9, adult
CPT/HCPCS: 36415; 36600; 71045; 74018; 74177; 74250; 76775; 80048; 80053; 80061; 81001; 82306; 82550; 82805; 82962; 83605; 83690; 83735; 83880; 83970; 84100; 84132; 85007; 85025; 85027; 85610; 85730; 86803; 86850; 86900; 86901; 86920; 87040; 87070; 87081; 87086; 87088; 87186; 87205; 87340; 90935; 93005; 93306; 94002; 94003; 95819; 96365; 96367; 96375; C9113; G0378; J0171; J0330; J0461; J0696; J1815; J1885; J2250; J2405; J2543; J2704; J3490; J7060; P9047; Q9967